=== PATIENT | male | born 1930 | race Caucasian/White ===

== ENCOUNTER 2016-12-02 10:50 | Emergency (ER) | payer MEDICARE ==
[~2016-12-02] VITALS: Ht 182.9 cm; Wt 97.0 kg
[~2016-12-02 10:50] MED LIST: ASPI81TA82 PO; CALTTAB5 PO; GABA300C3 PO; GLUCCAP13 PO; LOMO PO; SPIRCAP INH; TAB-TAB PO; TERA2CAP3 PO
[2016-12-02 10:51] VITALS: BP 190/74; PULSE 59; RESP 16; TEMP 98.4; O2SAT 94
--- NOTE | 2016-12-02 11:54 | PD ---
HPI . "my doctor sent me" Chief Complaint: Edema Time Seen by Provider: 11:10 Travel History International Travel<30 days: No Contact w/Intl Traveler<30days: No Traveled to known affect area: No History of Present Illness HPI 86-year-old male with a history of emphysema presents after physician sent him for left leg swelling. Swelling has been gradual for one week and got significantly worse on Wednesday. On Wednesday he noticed several bruises over the left lower extremity. Patient typically walks 2 miles a day and has still been able to ambulate. He denies any chest pain, shortness of breath, cough, leg pain or trauma to the area. He denies any history of blood clots or GI bleeds. PFSH Past Medical History Arthritis: Yes Cancer: Yes (COLON) Cardiovascular Problems: No COPD: Yes (EMPHYSEMA) Cerebrovascular Accident: Yes (20 yrs ago ) Diabetes: No Endocrine: No GERD: Yes Genitourinary: Yes (BPH) Hepatitis: No Hiatal Hernia: No Immune Disorder: No Musculoskeletal: Yes Neurologic: No Psychiatric: No Reproductive: No Respiratory: Yes (Emphysema ) Radiation Therapy: No Thyroid Disease: No Past Surgical History Abdominal Surgery: Yes (RIGHT ING. HERNIA REPAIR, COLON SX FOR CA) Pacemaker: No Social History Alcohol Use: Yes (3GLASSES OF WINE/NIGHT) Tobacco Use: No (QUIT 15 YEARS AGO) Substance Use: No Allergies-Medications (Allergen,Severity, Reaction): Coded Allergies: No Known Allergies (Verified , 04/06/12) Reported Meds & Prescriptions Reported Meds & Active Scripts Active Reported Aspir-81 (Aspirin) 81 Mg Tab 81 Mg PO DAILY Lomotil (Diphenoxylate HCl/Atropine) 1 Tab Tab 1 Tab PO TID FOR DIARRHEA Glucosamine/Chondroitin Cap 1 Cap PO BID Spiriva Handihaler (Tiotropium Blanchard) 18 Mcg Cap 1 Dose INH DAILY DO NOT SWALLOW CAPSULES Calcium (Calcium Carbonate) 600 Mg Tab 600 Mg PO DAILY Multivitamin (Multivitamins) 1 Tab Tab 1 Tab PO DAILY Terazosin Hcl (Terazosin HCl) 2 Mg Cap 2 Mg PO DAILY Gabapentin 300 Mg Cap 300 Mg PO TID Review of Systems Except as stated in HPI: all other systems reviewed are Neg General / Constitutional: No: Fever HENT: No: Headaches Cardiovascular: No: Chest Pain or Discomfort, Tachycardia Respiratory: No: Cough, Shortness of Breath, Hemoptysis Gastrointestinal: No: Nausea, Vomiting Musculoskeletal: Positive: Edema, Other (leg pain), No: Myalgias Skin: Positive Dryness, Positive Change in Pigmentation Neurologic: No: Weakness, Headache Physical Exam Narrative GENERAL: Awake and alert in no acute distress. SKIN: Warm and dry. Peeling skin bilaterally in the toes and feet. HEAD: Atraumatic. Normocephalic. EYES: Pupils equal and round. Extraocular eye movements intact. ENT: Mucous membranes pink and moist. NECK: Trachea midline. Neck supple. CARDIOVASCULAR: Regular rate and rhythm. RESPIRATORY: Clear to auscultation bilaterally. No accessory muscle use. GASTROINTESTINAL: Abdomen soft, non-tender, nondistended. MUSCULOSKELETAL: Obvious swelling of the left lower extremity. Left lower extremity is significantly larger in circumference than the right. 3-4 cm bruise over the left medial harris. Pitting edema bilaterally to the knee, more severe on the left. Not tender on palpation of left calf. No erythema. Alopecia of both lower extremities. NEUROLOGICAL: Awake and alert. No obvious cranial nerve deficits. Motor grossly within normal limits. Normal speech. PSYCHIATRIC: Appropriate mood and affect; insight and judgment normal. Data Data Last Documented VS Vital Signs Date Time Temp Pulse Resp B/P Pulse Ox O2 Delivery O2 Flow Rate FiO2 12/02/16 11:52 99 Room Air 12/02/16 10:51 98.4 59 16 190/74 Orders Act Partial Throm Time (Ptt) (12/02/16 11:36) Prothrombin Time / Inr (Pt) (12/02/16 11:36) Us Leg Venous Doppler (12/02/16 11:45) Labs Laboratory Tests Test 12/02/16 11:35 Prothrombin Time 10.7 SEC Prothromb Time International 1.0 RATIO Ratio Activated Partial 27.9 SEC Thromboplast Time MDM Medical Decision Making Medical Screen Exam Complete: Yes Emergency Medical Condition: Yes Differential Diagnosis Differentials include DVT, PE, cellulitis, thrombophlebitis. Narrative Course Patient presents with 1 week of left lower extremity swelling and was sent to ED by his primary care physician. Patient is denying any chest pain, shortness of breath, or leg pain. The left lower extremity is obviously larger than the right and has prominent swelling. He has no previous history of blood clots but his physical exam is suggestive of a DVT. Lower Extremity Ultrasound 12/02/16 1145 Signed Impressions: Service Date/Time: Friday, December 02, 2016 11:50 - CONCLUSION: Occlusive DVT involving the left peroneal vein and popliteal vein. Chencho Olivo MD Laboratory Tests Test 12/02/16 11:35 Prothrombin Time 10.7 SEC Prothromb Time International 1.0 RATIO Ratio Activated Partial 27.9 SEC Thromboplast Time Patient was found to have a DVT of the left lower extremity. Will be started on Xarelto and instructed to follow-up closely with his primary care physician. Return precautions for PE were given. Patient will be discharged to home. Diagnosis Primary Impression: Deep vein thrombosis (DVT) Qualified Code: I82.432 - Acute deep vein thrombosis (DVT) of popliteal vein of left lower extremity Patient Instructions: Deep Venous Thrombosis (DC), General Instructions, Pulmonary Embolism (DC) Med/Other Pt SpecificInfo: Prescription(s) given Scripts Rivaroxaban (Xarelto)15 Mg Tab15 Mg PO Q12HR 21 Days Ref 0 Prov:Lolly Jacobs MD 12/02/16 Disposition: 01 DISCHARGE HOME Condition: Stable Lolly Jacobs MD Dec 02, 2016 11:53
[2016-12-02 12:17] LABS: APTT (PATIENT) 27.9 SEC (24.3-30.1); PROTHROMBIN TIME - PATIENT 10.7 SEC (9.8-11.6)
--- NOTE | 2016-12-02 13:11 | RADRPT ---
EXAM DATE/TIME: 12/02/2016 11:50 [facility] COMPARISON: No previous studies available for comparison. INDICATIONS : Left leg swelling. MEDICAL HISTORY : Hypertension. Chronic obstructive pulmonary disease. CVA. GI bleed. Colon cancer. GERD. BPH. Arth ritis. SURGICAL HISTORY : Colon resection. Hernia repair. ENCOUNTER: Initial ACUITY: 1 day PAIN SCORE: 0/10 LOCATION: Left leg. TECHNIQUE: Venous ultrasound of the leg was performed from the inguinal ligament to the proximal calf. Real-ara e, color Doppler and spectral tracing, compression and augmentation techniques were used. FINDINGS: There is evidence of occlusive deep venous thrombosis involving the popliteal vein and left peroneal vein within the calf. The superficial common femoral vein in the thigh and upper to the pelvis are pa tent. CONCLUSION: Occlusive DVT involving the left peroneal vein and popliteal vein. Chencho Olivo MD on December 02, 2016 at 13:07 Board Certified Radiologist. This report was verified electronically.
[2016-12-02] MEDS ORDERED: XARE15TA PO (13:27)
[2016-12-02] MEDS ORDERED: IBUPROFEN 800 MG TAB PO ONE (13:30)
[2016-12-02 14:05] VITALS: BP 128/74
== END 2016-12-02 14:06 | disposition home or self-care (01) ==
LOC: NEPD 10:50
DX: I82.432 Acute embolism and thrombosis of left popliteal vein (principal); J43.9 Emphysema, unspecified; Z87.891 Personal history of nicotine dependence
CPT/HCPCS: 85610; 85730; 93971

== ENCOUNTER 2017-05-06 10:17 | Inpatient (IN) | payer MEDICARE ==
[~2017-05-06] VITALS: Ht 182.9 cm; Wt 94.3 kg
[2017-05-06] VITALS (8 sets, daily range): BP systolic 144–179; BP diastolic 63–82; PULSE 76–111; RESP 22–26; TEMP 98.8–100.2; O2SAT 73–95
[~2017-05-06 10:17] MED LIST changes: +XARE15TA PO
--- NOTE | 2017-05-06 10:44 | PD ---
HPI Chief Complaint: Respiratory Distress Time Seen by Provider: 10:39 Travel History International Travel<30 days: No Contact w/Intl Traveler<30days: No Traveled to known affect area: No History of Present Illness HPI 87-year-old male patient with history of COPD, CHF, presents to the ER today because he has had several days' history of worsening dyspnea on exertion, shortness of breath, coughing up foamy yellowish phlegm. He denies any chest pains, has been having some mild subjective fevers. He denies any other issues. He states that his renal doctor had stopped his Lasix several weeks ago. Modifying Factors: None Associated Signs & Symptoms: Shortness of breath, dyspnea on exertion Risk Factors: CHF history, COPD history, stopped Lasix PFSH Past Medical History Arthritis: Yes Cancer: Yes (COLON) Cardiovascular Problems: No COPD: Yes (EMPHYSEMA) Cerebrovascular Accident: Yes (20 yrs ago ) Diabetes: No Diminished Hearing: No Endocrine: No Gastrointestinal Disorders: Yes (CURRENT GI BLEED) GERD: Yes Genitourinary: Yes (BPH) Hepatitis: No Hiatal Hernia: No Hypertension: Yes Immune Disorder: No Medical other: Yes (BACK, ARTHRITIS) Musculoskeletal: Yes Neurologic: No Psychiatric: No Reproductive: No Respiratory: Yes Radiation Therapy: No Thyroid Disease: No Tetanus Vaccination: > 5 Years Influenza Vaccination: Yes Past Surgical History Abdominal Surgery: Yes (RIGHT ING. HERNIA REPAIR, COLON SX FOR CA) Pacemaker: No Social History Alcohol Use: Yes Tobacco Use: No Substance Use: No Allergies-Medications (Allergen,Severity, Reaction): Coded Allergies: No Known Allergies (Verified Adverse Reaction, Unknown, 05/06/17) Reported Meds & Prescriptions Reported Meds & Active Scripts Active Reported Lasix (Furosemide) 40 Mg Tab 40 Mg PO DAILY Glucosamine-Chondroitin 500-400 Mg Tab 1 Tab PO BID Spiriva Handihaler (Tiotropium Inh) 18 Mcg Cap 18 Mcg INH DAILY 1 capsule = 18 mcg Aspir-81 (Aspirin) 81 Mg Tabdr Calcium 600+D 200 (Calcium Carbonate-Vitamin D) 600-200 Mg-Unit Tab 1 Tab PO BID Terazosin (Terazosin HCl) 2 Mg Cap 2 Mg PO HS Gabapentin 300 Mg Cap 300 Mg PO TID Review of Systems Except as stated in HPI: all other systems reviewed are Neg Physical Exam Narrative GENERAL: Well-developed elderly white male patient currently in mild respiratory distress. Awake and oriented 3. SKIN: Focused skin assessment warm/dry. HEAD: Atraumatic. Normocephalic. EYES: Pupils equal and round. No scleral icterus. No injection or drainage. ENT: No nasal bleeding or discharge. Mucous membranes pink and moist. NECK: Trachea midline. No JVD. CARDIOVASCULAR: Regular rate and rhythm. No murmur appreciated. RESPIRATORY: No accessory muscle use. Bibasilar rails. Breath sounds equal bilaterally. GASTROINTESTINAL: Abdomen soft, non-tender, nondistended. Hepatic and splenic margins not palpable. MUSCULOSKELETAL: No obvious deformities. No clubbing. No cyanosis. Bilateral pitting edema the legs. NEUROLOGICAL: Awake and alert. No obvious cranial nerve deficits. Motor grossly within normal limits. Normal speech. PSYCHIATRIC: Appropriate mood and affect; insight and judgment normal. Data Data Last Documented VS Vital Signs Date Time Temp Pulse Resp B/P (MAP) Pulse Ox O2 Delivery O2 Flow Rate FiO2 05/06/17 12:13 90 26 144/63 (90) 94 Nasal Cannula 5.00 05/06/17 10:28 99.4 Orders Orders Complete Blood Count With Diff (05/06/17 10:39) Comprehensive Metabolic Panel (05/06/17 10:39) B-Type Natriuretic Peptide (05/06/17 10:39) Act Partial Throm Time (Ptt) (05/06/17 10:39) Prothrombin Time / Inr (Pt) (05/06/17 10:39) Magnesium (Mg) (05/06/17 10:39) Ckmb (Isoenzyme) Profile (05/06/17 10:39) Troponin I (05/06/17 10:39) Influenzae A/B Antigen (05/06/17 10:39) Blood Culture (05/06/17 10:39) Iv Access Insert/Monitor (05/06/17 10:39) Electrocardiogram (05/06/17 10:39) Ecg Monitoring (05/06/17 10:39) Oximetry (05/06/17 10:39) Oxygen Administration (05/06/17 10:39) Chest, Single Ap (05/06/17 10:39) Sodium Chloride 0.9% Flush (Ns Flush) (05/06/17 10:45) Nitroglycerin 2% Oint (Nitroglycerin 2% (05/06/17 10:45) CKMB (05/06/17 10:45) CKMB% (05/06/17 10:45) Ceftriaxone Inj (Rocephin Inj) (05/06/17 11:41) Azithromycin Inj (Zithromax Inj) (05/06/17 11:41) Admit To Inpatient (05/06/17 ) Code Status (05/06/17 12:06) Vital Signs (Adult) Q4H (05/06/17 12:06) Activity Oob With Assistance (05/06/17 12:06) Diet Heart Healthy (05/06/17 Lunch) Sodium Chloride 0.9% Flush (Ns Flush) (05/06/17 12:15) Sodium Chloride 0.9% Flush (Ns Flush) (05/06/17 21:00) Acetaminophen (Tylenol) (05/06/17 12:15) Ondansetron Inj (Zofran Inj) (05/06/17 12:15) Basic Metabolic Panel (Bmp) (05/07/17 06:00) Complete Blood Count With Diff (05/07/17 06:00) Chest, Pa & Lat (05/07/17 08:00) Electrocardiogram (05/06/17 12:06) Resp Oxygen Sang C Titrat 1-4 L (05/06/17 ) Pt Request For Service (05/06/17 12:06) Scd Bilateral/Knee High [place].BID (05/06/17 12:06) Naloxone Inj (Narcan Inj) (05/06/17 12:15) Magnesium Hydroxide Liq (Milk Of Magnesi (05/06/17 12:15) Inpatient Certification (05/06/17 ) Gabapentin (Neurontin) (05/06/17 13:00) Terazosin (Hytrin) (05/06/17 21:00) Tiotropium Inh (Spiriva Inh) (05/07/17 09:00) Albuterol-Ipratropium Neb (Duoneb Neb) (05/06/17 16:00) Albuterol-Ipratropium Neb (Duoneb Neb) (05/06/17 12:30) Rivaroxaban (Xarelto) (05/07/17 09:00) Labs Laboratory Tests Test 05/06/17 10:45 White Blood Count 12.4 TH/MM3 Red Blood Count 3.93 MIL/MM3 Hemoglobin 12.5 GM/DL Hematocrit 37.7 % Mean Corpuscular Volume 96.0 FL Mean Corpuscular Hemoglobin 31.9 PG Mean Corpuscular Hemoglobin Concent 33.2 % Red Cell Distribution Width 13.2 % Platelet Count 215 TH/MM3 Mean Platelet Volume 8.1 FL Neutrophils (%) (Auto) 84.2 % Lymphocytes (%) (Auto) 5.1 % Monocytes (%) (Auto) 10.6 % Eosinophils (%) (Auto) 0.0 % Basophils (%) (Auto) 0.1 % Neutrophils # (Auto) 10.5 TH/MM3 Lymphocytes # (Auto) 0.6 TH/MM3 Monocytes # (Auto) 1.3 TH/MM3 Eosinophils # (Auto) 0.0 TH/MM3 Basophils # (Auto) 0.0 TH/MM3 CBC Comment DIFF FINAL Differential Comment Prothrombin Time 10.0 SEC Prothromb Time International Ratio 1.0 RATIO Activated Partial Thromboplast Time 32.0 SEC Blood Urea Nitrogen 17 MG/DL Creatinine 1.18 MG/DL Random Glucose 117 MG/DL Total Protein 7.4 GM/DL Albumin 2.8 GM/DL Calcium Level 9.2 MG/DL Magnesium Level 1.5 MG/DL Alkaline Phosphatase 104 U/L Aspartate Amino Transf (AST/SGOT) 28 U/L Alanine Aminotransferase (ALT/SGPT) 25 U/L Total Bilirubin 0.8 MG/DL Sodium Level 132 MEQ/L Potassium Level 4.0 MEQ/L Chloride Level 96 MEQ/L Carbon Dioxide Level 26.0 MEQ/L Anion Gap 10 MEQ/L Estimat Glomerular Filtration Rate 59 ML/MIN Total Creatine Kinase 111 U/L Creatine Kinase MB 3.0 NG/ML Troponin I LESS THAN 0.02 NG/ML B-Type Natriuretic Peptide 137 PG/ML MDM Medical Decision Making Medical Screen Exam Complete: Yes Emergency Medical Condition: Yes Medical Record Reviewed: Yes Interpretation(s) Laboratory Tests Test 05/06/17 10:45 White Blood Count 12.4 TH/MM3 (4.0-11.0) Red Blood Count 3.93 MIL/MM3 (4.50-5.90) Hemoglobin 12.5 GM/DL (13.0-17.0) Hematocrit 37.7 % (39.0-51.0) Neutrophils (%) (Auto) 84.2 % (16.0-70.0) Lymphocytes (%) (Auto) 5.1 % (9.0-44.0) Monocytes (%) (Auto) 10.6 % (0.0-8.0) Neutrophils # (Auto) 10.5 TH/MM3 (1.8-7.7) Lymphocytes # (Auto) 0.6 TH/MM3 (1.0-4.8) Monocytes # (Auto) 1.3 TH/MM3 (0-0.9) Activated Partial Thromboplast Time 32.0 SEC (24.3-30.1) Random Glucose 117 MG/DL (74-106) Albumin 2.8 GM/DL (3.4-5.0) Sodium Level 132 MEQ/L (136-145) Chloride Level 96 MEQ/L (98-107) Estimat Glomerular Filtration Rate 59 ML/MIN (>89) Troponin I LESS THAN 0.02 NG/ML B-Type Natriuretic Peptide 137 PG/ML (0-100) Last 24 hours Impressions Chest X-Ray 05/06/17 1039 Signed Impressions: Service Date/Time: , May 06, 2017 10:47 - CONCLUSION: 1. Left lower lobe airspace consolidation and likely trace pleural effusion. Findings are concerning for left lower lobe pneumonia. 2. Cardiomegaly with minimal positive fluid balance. Jeremy Rolon MD Differential Diagnosis Shortness of breath, dyspnea on exertion: CHF exacerbation versus COPD exacerbation versus pneumonia Narrative Course Chest x-ray concerning for underlying left lower lobe pneumonia. IV antibiotics initiated after blood cultures were drawn. Patient was initially given nitroglycerin due to elevated blood pressure and leg swelling, concerning for CHF exacerbation. However, chest x-ray and BNP is not indicative of this. Nitroglycerin was removed at that time. Case was then discussed with Dr. Fajardo for admission for further treatment. Diagnosis Primary Impression: Pneumonia Additional Impressions: Hypoxia Sepsis Admitting Information Admitting Physician Requests: Kaushik Briones MD May 06, 2017 10:44
[2017-05-06] MEDS ORDERED: SODIUM CHLORIDE 0.9% FLUSH 10 ML FLUSH IVF PRN (10:45)
[2017-05-06] MEDS ORDERED: TERA2CAP3 PO (10:45)
[2017-05-06] MEDS ORDERED: ASPI81TA81 (10:45)
[2017-05-06] MEDS ORDERED: SPIRCAP INH (10:45)
[2017-05-06] MEDS ORDERED: GLUC500T4 PO (10:45)
[2017-05-06] MEDS ORDERED: FURO1TAB60 PO (10:45)
[2017-05-06] MEDS ORDERED: GABA300C5 PO (10:45)
[2017-05-06] MEDS ORDERED: NITROGLYCERIN 2% OINT 1 GM PACKET TOPICAL ONE (10:45)
[2017-05-06] MEDS ORDERED: CALCTAB19 PO (10:45)
--- NOTE | 2017-05-06 11:04 | RADRPT ---
EXAM DATE/TIME: 05/06/2017 10:47 [facility] COMPARISON: No previous studies available for comparison. INDICATIONS : Short of breath and cough. MEDICAL HISTORY : Hypertension. Chronic obstructive pulmonary disease. Carcinoma, colon. CVA. GI bleed.GERD. BPH. A rthritis. SURGICAL HISTORY : Colon resection. Hernia repair. ENCOUNTER: Initial ACUITY: 1 day PAIN SCORE: 0/10 LOCATION: Bilateral chest FINDINGS: Left lower lobe airspace disease and likely trace pleural effusion. Cardiac lead is mildly enlarged. Pulmonary vascularity is slightly indistinct. Bony thorax is intact. CONCLUSION: 1. Left lower lobe airspace consolidation and likely trace pleural effusion. Findings are concerning for left lower lobe pneumonia. 2. Cardiomegaly with minimal positive fluid balance. Jeremy Rolon MD on May 06, 2017 at 11:02 Board Certified Radiologist. This report was verified electronically.
[2017-05-06 11:09] LABS: AUTOMATED NEUTROPHIL # 10.5 TH/MM3 (1.8-7.7); BASOPHIL % 0.1 % (0.0-2.0); HEMATOCRIT 37.7 % (39.0-51.0); HEMO FLAGS DIFF FINAL; LYMPH % 5.1 % (9.0-44.0); LYMPHOCYTE # 0.6 TH/MM3 (1.0-4.8); MEAN CORPUSCULAR HEMOGLOBIN 31.9 PG (27.0-34.0); MEAN CORPUSCULAR HGB CONC 33.2 % (32.0-36.0); MONO % 10.6 % (0.0-8.0); NEUT % 84.2 % (16.0-70.0); PLATELET COUNT 215 TH/MM3 (150-450); RED BLOOD COUNT 3.93 MIL/MM3 (4.50-5.90); RED CELL DISTRIBUTION WIDTH 13.2 % (11.6-17.2); WHITE BLOOD COUNT 12.4 TH/MM3 (4.0-11.0)
[2017-05-06 11:23] LABS: ANION GAP 10 MEQ/L (5-15); AST (GOT) 28 U/L (15-37); BLOOD UREA NITROGEN 17 MG/DL (7-18); CHLORIDE 96 MEQ/L (98-107); GLOMERULAR FILTRATION RATE 59 ML/MIN (>89); MAGNESIUM 1.5 MG/DL (1.5-2.5); SODIUM (NA) 132 MEQ/L (136-145)
[2017-05-06 11:28] LABS: ALKALINE PHOSPHATASE 104 U/L (45-117); ALT (GPT) 25 U/L (12-78); CREATINE KINASE 111 U/L (39-308); TOTAL BILIRUBIN ADULT 0.8 MG/DL (0.2-1.0)
[2017-05-06] MEDS ORDERED: cefTRIAXone INJ 2,000 MG in SODIUM CHLORIDE 0.9% INJ 100 ML IV STA (11:41)
[2017-05-06] MEDS ORDERED: AZITHROMYCIN INJ 500 MG in SODIUM CHLOR 0.9% 250 ML INJ 250 ML IV STA (11:41)
[2017-05-06] MEDS ORDERED: ONDANSETRON HCL 4 MG/2 ML VIAL IVP PRN (12:15)
[2017-05-06] MEDS ORDERED: ACETAMINOPHEN 325 MG TAB PO PRN (12:15)
[2017-05-06] MEDS ORDERED: SODIUM CHLORIDE 0.9% FLUSH 10 ML FLUSH IV FLUSH PRN (12:15)
[2017-05-06] MEDS ORDERED: MAGNESIUM HYDROXIDE SUSP 30 ML CUP PO PRN (12:15)
[2017-05-06] MEDS ORDERED: NALOXONE HCL 0.4 MG/ML AMP IV PUSH PRN (12:15)
[2017-05-06] MEDS ORDERED: RESP: ALBUTEROL 2.5 MG/IPRATROPIUM 0.5 MG NEB (PRN) NEB (12:30)
[2017-05-06] MEDS: GABAPENTIN 300 MG CAP PO SCH ×3 (13:41→22:46)
--- NOTE | 2017-05-06 15:02 | HHI.HP ---
HPI Service [facility] Hospitalists Primary Care Physician Edgar Melgar MD Admission Diagnosis pneumonia/respiratory distress/hypoxia Travel History International Travel<30 Days: No Contact w/Intl Traveler <30 Da: No Traveled to Known Affected Are: No History of Present Illness This is an 87-year-old male patient with past medical history which includes arthritis, BPH, stage II colon cancer resected 2010, chronic obstructive pulmonary disease, GERD, hyperlipidemia, memory loss, neuralgia foot, osteoarthritis and osteoporosis. Patient reports he's had worsening shortness of breath and cough productive of yellow phlegm for the past 5 days. Patient also endorses subjective fevers although he has not taken his temperature. Patient denies chills, chest pains nausea vomiting diarrhea constipation. Review of Systems Constitutional: COMPLAINS OF: Diaphoretic episodes, Fatigue, Fever, DENIES: Chills Eyes: DENIES: Blurred vision, Diplopia, Vision loss Respiratory: COMPLAINS OF: Cough, Sputum production, Shortness of breath Cardiovascular: COMPLAINS OF: Dyspnea on Exertion, DENIES: Chest pain, Lower Extremity Edema Gastrointestinal: DENIES: Nausea, Vomiting Neurologic: DENIES: Abnormal gait, Headache, Localized weakness, Speech Problems Psychiatric: DENIES: Anxiety, Confusion, Depression Past Family Social History Past Medical History arthritis, BPH, stage II colon cancer resected 2010, chronic obstructive pulmonary disease, GERD, hyperlipidemia, memory loss, neuralgia foot, osteoarthritis and osteoporosis Past Surgical History Appendectomy, colon resection for stage II carcinoma of the colon, hernia repair , tonsillectomy and surgical revision of undescended testicle Reported Medications Lasix (Furosemide) 40 Mg Tab 40 Mg PO DAILY- no longer taking discontinued by nephrology Glucosamine-Chondroitin 500-400 Mg Tab 1 Tab PO BID Spiriva Handihaler (Tiotropium Inh) 18 Mcg Cap 18 Mcg INH DAILY 1 capsule = 18 mcg Aspir-81 (Aspirin) 81 Mg Tabdr Calcium 600+D 200 (Calcium Carbonate-Vitamin D) 600-200 Mg-Unit Tab 1 Tab PO BID Terazosin (Terazosin HCl) 2 Mg Cap 2 Mg PO HS Gabapentin 300 Mg Cap 300 Mg PO TID Allergies: Coded Allergies: No Known Allergies (Verified Allergy, Unknown, 05/06/17) Active Ordered Medications Current Medications Medications (Trade) Dose Ordered Sig/Kamari Route Start Time Stop Time Status Last Admin (NS Flush) 2 ml UNSCH PRN IV FLUSH 05/06/17 12:15 (NS Flush) 2 ml BID IV FLUSH 05/06/17 21:00 (Tylenol) 650 mg Q4H PRN PO 05/06/17 12:15 (Zofran Inj) 4 mg Q6H PRN IVP 05/06/17 12:15 (Narcan Inj) 0.4 mg UNSCH PRN IV PUSH 05/06/17 12:15 (Milk Of Magnyulia Liq) 30 ml Q12H PRN PO 05/06/17 12:15 (Neurontin) 300 mg TID PO 05/06/17 13:00 05/06/17 13:41 (Hytrin) 2 mg HS PO 05/06/17 21:00 (Spiriva Inh) 18 mcg DAILY INH 05/07/17 09:00 (Duoneb Neb) 1 ampule Q4HR WHILE AWAKE NEB NEB 05/06/17 16:00 (Duoneb Neb) 1 ampule Q2HR NEB PRN NEB 05/06/17 12:30 (Xarelto) 20 mg DAILY PO 05/07/17 09:00 Family History Reviewed and noncontributory Social History Rare EtOH use Denies tobacco use or illicit drug use Physical Exam Vital Signs Vital Signs Date Time Temp Pulse Resp B/P (MAP) Pulse Ox O2 Delivery O2 Flow Rate FiO2 05/06/17 14:15 100.2 94 22 149/66 (93) 92 05/06/17 13:53 05/06/17 12:13 90 26 144/63 (90) 94 Nasal Cannula 5.00 05/06/17 10:45 94 Nasal Cannula 5.00 05/06/17 10:36 90 26 94 Nasal Cannula 5.00 05/06/17 10:28 99.4 94 26 154/82 (106) 92 05/06/17 10:20 98.8 111 24 179/81 (113) 73 Room Air Physical Exam GENERAL: This is a well-nourished, well-developed patient, SOB with conversation SKIN: No rashes, ecchymoses or lesions. Cool and dry. HEAD: Atraumatic. Normocephalic. No temporal or scalp tenderness. EYES: Extraocular motions intact. No scleral icterus. No injection or drainage. ENT: Nose without bleeding, purulent drainage or septal hematoma. Throat without erythema, tonsillar hypertrophy or exudate. Uvula midline. Airway patent. NECK: Trachea midline. No JVD or lymphadenopathy. Supple, nontender, no meningeal signs. CARDIOVASCULAR: Regular rate and rhythm RESPIRATORY: rhonchi and wheezing through out with poor air movement GASTROINTESTINAL: Abdomen soft, non-tender, nondistended. No guarding. MUSCULOSKELETAL: Bilateral lower extremity 3 + pitting edema NEUROLOGICAL: Awake and alert. No focal deficits noted. Motor and sensory grossly within normal limits. Five out of 5 muscle strength in all muscle groups. Laboratory Laboratory Tests Test 05/06/17 10:45 White Blood Count 12.4 Red Blood Count 3.93 Hemoglobin 12.5 Hematocrit 37.7 Mean Corpuscular Volume 96.0 Mean Corpuscular Hemoglobin 31.9 Mean Corpuscular Hemoglobin Concent 33.2 Red Cell Distribution Width 13.2 Platelet Count 215 Mean Platelet Volume 8.1 Neutrophils (%) (Auto) 84.2 Lymphocytes (%) (Auto) 5.1 Monocytes (%) (Auto) 10.6 Eosinophils (%) (Auto) 0.0 Basophils (%) (Auto) 0.1 Neutrophils # (Auto) 10.5 Lymphocytes # (Auto) 0.6 Monocytes # (Auto) 1.3 Eosinophils # (Auto) 0.0 Basophils # (Auto) 0.0 CBC Comment DIFF FINAL Differential Comment Prothrombin Time 10.0 Prothromb Time International Ratio 1.0 Activated Partial Thromboplast Time 32.0 Blood Urea Nitrogen 17 Creatinine 1.18 Random Glucose 117 Total Protein 7.4 Albumin 2.8 Calcium Level 9.2 Magnesium Level 1.5 Alkaline Phosphatase 104 Aspartate Amino Transf (AST/SGOT) 28 Alanine Aminotransferase (ALT/SGPT) 25 Total Bilirubin 0.8 Sodium Level 132 Potassium Level 4.0 Chloride Level 96 Carbon Dioxide Level 26.0 Anion Gap 10 Estimat Glomerular Filtration Rate 59 Total Creatine Kinase 111 Creatine Kinase MB 3.0 Troponin I LESS THAN 0.02 B-Type Natriuretic Peptide 137 Date/Time Source Procedure Growth Status 05/06/17 11:20 Blood Peripheral Aerobic Blood Culture Pending Received 05/06/17 11:20 Blood Peripheral Anaerobic Blood Culture Pending Received 05/06/17 12:20 Nasal Washing Influenza Types A,B Antigen (MARY KAY) - Final NEGATIVE FOR FLU A AND B ANTIGEN.... Complete Result Diagram: 05/06/17 1045 05/06/17 1045 Imaging Last Impressions Chest X-Ray 05/06/17 1039 Signed Impressions: Service Date/Time: April 10:47 - CONCLUSION: 1. Left lower lobe airspace consolidation and likely trace pleural effusion. Findings are concerning for left lower lobe pneumonia. 2. Cardiomegaly with minimal positive fluid balance. MD Sharon Weavre VTE Risk Assessment Caprinwhitley VTE Risk Assessment: Mod/High Risk (score >= 2) Caprini Risk Assessment Model Point Value = 1 Point Value = 2 Point Value = 3 Point Value = 5 Age 41-60 Minor surgery BMI > 25 kg/m2 Swollen legs Varicose veins or History of unexplained or recurrent spontaneous Oral contraceptives or hormone replacement Sepsis (< 1 month) Serious lung disease, including pneumonia (< 1 month) Abnormal pulmonary function Acute myocardial infarction Congestive heart failure (< 1 month) History of inflammatory bowel disease Medical patient at bed rest Age 61-74 Arthroscopic surgery Major open surgery (> 45 min) Laparoscopic surgery (> 45 min) Malignancy Confined to bed (> 72 hours) Immobilizing plaster cast Central venous access Age >= 75 History of VTE Family history of VTE Factor V Leiden Prothrombin [id number] Lupus anticoagulant Anticardiolipin antibodies Elevated serum homocysteine Heparin-induced thrombocytopenia Other congenital or acquired thrombophilia Stroke (< 1 month) Elective arthroplasty Hip, pelvis, or leg fracture Acute spinal cord injury (< 1 month) Prophylaxis Regimen Total Risk Factor Score Risk Level Prophylaxis Regimen 0-1 Low Early ambulation 2 Moderate Order ONE of the following: *Sequential Compression Device (SCD) *Heparin 5000 units SQ BID 3-4 Higher Order ONE of the following medications: *Heparin 5000 units SQ TID *Enoxaparin/Lovenox 40 mg SQ daily (WT < 150 kg, CrCl > 30 mL/min) *Enoxaparin/Lovenox 30 mg SQ daily (WT < 150 kg, CrCl > 10-29 mL/min) *Enoxaparin/Lovenox 30 mg SQ BID (WT < 150 kg, CrCl > 30 mL/min) AND/OR *Sequential Compression Device (SCD) 5 or more Highest Order ONE of the following medications: *Heparin 5000 units SQ TID (Preferred with Epidurals) *Enoxaparin/Lovenox 40 mg SQ daily (WT < 150 kg, CrCl > 30 mL/min) *Enoxaparin/Lovenox 30 mg SQ daily (WT < 150 kg, CrCl > 10-29 mL/min) *Enoxaparin/Lovenox 30 mg SQ BID (WT < 150 kg, CrCl > 30 mL/min) AND *Sequential Compression Device (SCD) Assessment and Plan Problem List: (1) Pneumonia ICD Codes: J18.9 - Pneumonia, unspecified organism Status: Acute Plan: This is an 87-year-old male patient with past medical history which includes arthritis, BPH, stage II colon cancer resected 5 2010, chronic obstructive pulmonary disease, GERD, hyperlipidemia, memory loss, neuralgia foot , osteoarthritis and osteoporosis. Patient reports he's had worsening shortness of breath and cough productive of yellow phlegm for the past 5 days and subjective fevers. - CXR reviewed and reveals: Left lower lobe airspace consolidation and likely trace effusion. Findings are concerning for left lower lobe pna. Cardiomegaly with minimal positive fluid balance - Duonebs Q4h while awake and as needed - patient started on Rocephin and azithromycin in ER, will start Zosyn - repeat CXR PA and LAT in AM - Sputum culture, urine for legionella antigen and pneumococcal - titrate oxygen to maintain saturation > or equal to 92% (2) Hypoxia ICD Codes: R09.02 - Hypoxemia Status: Acute Plan: see above (3) COPD (chronic obstructive pulmonary disease) ICD Codes: J44.9 - Chronic obstructive pulmonary disease, unspecified Status: Acute Plan: Continue patient's home Spiriva duonebs scheduled and as needed patient with significant bilateral wheezing and decreased air entry, will add solumedrol 125 mg now then 60 mg Q6H (4) BPH (benign prostatic hyperplasia) ICD Codes: N40.0 - Benign prostatic hyperplasia without lower urinary tract symptoms Status: Chronic Plan: Continue patient's home Terazosin (5) Edema ICD Codes: R60.9 - Edema, unspecified Status: Chronic Plan: Patient with right sided Pleural effusion and BLE pitting edema Lasix 20 mg IV daily Assessment and Plan Patient examined. Assessment and plan formulated with Rebecca BAIRES I agree with the above. Physician Certification 2 Midnight Certification Type: Admission for Inpatient Services Order for Inpatient Services The services are ordered in accordance with Medicare regulations or non- Medicare payer requirements, as applicable. In the case of services not specified as inpatient-only, they are appropriately provided as inpatient services in accordance with the 2-midnight benchmark. Estimated LOS (days): 3 days is the estimated time the patient will need to remain in the hospital, assuming treatment plan goals are met and no additional complications. Post-Hospital Plan: Home Rebecca Andrew May 06, 2017 15:02 Gray Fajardo DO May 14, 2017 11:43
--- NOTE | 2017-05-06 17:01 | EKG ---
Date Performed: 05/06/2017 Time Performed: 12:34:24 PTAGE: 87 years EKG: Godfrey baseline artifact present.. Unclear underlying rhythm. Would repeat EKG. NONSPECIFIC T -WAVE ABNORMALITY ABNORMAL RHYTHM ECG PREVIOUS TRACING : 10/14/2010 09.55 DOCTOR: Oleg Willis Interpretating Date/Time 05/06/2017 17:00:29
[2017-05-06] MEDS ORDERED: methylPREDNISolone SOD SUCC 125 MG/2 ML VIAL IV PUSH ONE (18:15)
[2017-05-06] MEDS ORDERED: FUROSEMIDE 20 MG/2 ML VIAL IV PUSH ONE (18:15)
[2017-05-06] MEDS ORDERED: PIPERACIL-TAZO 3.375 GM PREMIX 50 ML IV SCH (18:30)
[2017-05-06] MEDS: TERAZOSIN HCL 1 MG CAP PO SCH (21:05)
[2017-05-06] MEDS: SODIUM CHLORIDE 0.9% FLUSH 10 ML FLUSH IV FLUSH SCH (21:05)
[2017-05-06] MEDS: guaiFENesin/CODEINE SYRUP 200 MG/20 MG/10 ML CUP PO PRN (21:05)
[2017-05-06] MEDS: PIPERACIL-TAZO 3.375 GM PREMIX 50 ML IV SCH (21:12)
[2017-05-06] MEDS: RESP: ALBUTEROL 2.5 MG/IPRATROPIUM 0.5 MG NEB (SCH) NEB (21:21)
[2017-05-07] VITALS (12 sets, daily range): BP systolic 122–157; BP diastolic 58–72; PULSE 69–94; RESP 18–24; TEMP 97.2–98.6; O2SAT 90–93
[2017-05-07] MEDS: guaiFENesin/CODEINE SYRUP 200 MG/20 MG/10 ML CUP PO PRN ×2 (04:33→22:20)
[2017-05-07] MEDS: PIPERACIL-TAZO 3.375 GM PREMIX 50 ML IV SCH ×4 (04:33→22:17)
[2017-05-07 07:17] LABS: AUTOMATED NEUTROPHIL # 10.7 TH/MM3 (1.8-7.7); BASOPHIL % 0.3 % (0.0-2.0); EOSINOPHIL % 0.1 % (0.0-4.0); HEMATOCRIT 34.9 % (39.0-51.0); LYMPH % 4.8 % (9.0-44.0); LYMPHOCYTE # 0.6 TH/MM3 (1.0-4.8); MEAN CELL VOLUME 95.2 FL (80.0-100.0); MEAN CORPUSCULAR HEMOGLOBIN 32.7 PG (27.0-34.0); MEAN CORPUSCULAR HGB CONC 34.4 % (32.0-36.0); MONO % 3.6 % (0.0-8.0); NEUT % 91.2 % (16.0-70.0); PLATELET COUNT 205 TH/MM3 (150-450); RED BLOOD COUNT 3.67 MIL/MM3 (4.50-5.90); RED CELL DISTRIBUTION WIDTH 13.1 % (11.6-17.2); WHITE BLOOD COUNT 11.7 TH/MM3 (4.0-11.0)
[2017-05-07 07:21] LABS: HEMO FLAGS AUTO DIFF
[2017-05-07 07:37] LABS: BICARBONATE 29.6 MEQ/L (21.0-32.0); POTASSIUM 4.2 MEQ/L (3.5-5.1)
[2017-05-07 08:31] LABS: MYELOCYTES 1 % (0-0); NEUTROPHIL # MANUAL DIFF 10.4 TH/MM3 (1.8-7.7); POLYS (SEG NEUTROPHILS) 88 % (16-70); WBC DIFF SAMPLE 100
[2017-05-07 08:33] LABS: PLATELET ESTIMATE SMEAR NORMAL (NORMAL); PLATELET MORPHOLOGY NORMAL (NORMAL); SCAN/DIFF FINAL DIFF MANUAL
[2017-05-07] MEDS ORDERED: RIVAROXABAN 20 MG TAB PO SCH (09:00)
--- NOTE | 2017-05-07 09:08 | RADRPT ---
EXAM DATE/TIME: 05/07/2017 08:47 [facility] COMPARISON: CHEST SINGLE AP, May 06, 2017, 10:47. INDICATIONS : Pneumonia. Patient complains of shortness of breath and cough. MEDICAL HISTORY : Chronic obstructive pulmonary disease. Hypertension Carcinoma, colon. CVA. SURGICAL HISTORY : Colon resection. Hernia repair. ENCOUNTER: Subsequent ACUITY: 1 week PAIN SCORE: 0/10 LOCATION: Bilateral chest FINDINGS: AP and lateral views of the chest demonstrate a cardiac silhouette size at the upper limits for merlin l. Lungs are underinflated. There is a small left basilar pleural-parenchymal opacity. Mild linear op acity is present at the right base. There is airspace consolidation on the lateral projection one of the lower lobes. No pneumothorax is identified. Bones demonstrate no acute finding. CONCLUSION: 1. Small left pleural effusion with adjacent atelectasis. There is likely atelectasis at the right rohith ng base as well. 2. Airspace consolidation in one of the lower lobes, likely the left lower lobe. This could represent an infectious process given the clinical history. Adrian Torres MD on May 07, 2017 at 9:05 Board Certified Radiologist. This report was verified electronically.
[2017-05-07] MEDS: RESP: ALBUTEROL 2.5 MG/IPRATROPIUM 0.5 MG NEB (SCH) NEB ×4 (09:12→19:29)
[2017-05-07] MEDS: GABAPENTIN 300 MG CAP PO SCH ×3 (09:25→18:07)
[2017-05-07] MEDS: FUROSEMIDE 20 MG/2 ML VIAL IV PUSH SCH (09:25)
[2017-05-07] MEDS: methylPREDNISolone SOD SUCC 125 MG/2 ML VIAL IV PUSH SCH ×3 (09:25→22:18)
[2017-05-07] MEDS: SODIUM CHLORIDE 0.9% FLUSH 10 ML FLUSH IV FLUSH SCH ×2 (09:29→22:18)
[2017-05-07] MEDS ORDERED: AZITHROMYCIN INJ 500 MG in SODIUM CHLOR 0.9% 250 ML INJ 250 ML IV SCH (10:00)
[2017-05-07] MEDS: TIOTROPIUM BROMIDE 18 MCG INH INH SCH (10:49)
[2017-05-07] MEDS ORDERED: cefTRIAXone INJ 1,000 MG in SODIUM CHLORIDE 0.9% INJ 100 ML IV SCH (11:00)
--- NOTE | 2017-05-07 17:03 | HHI.PR ---
Subjective Remarks Patient slightly improved today patient down to 4L via NC Objective Vitals Vital Signs Date Time Temp Pulse Resp B/P (MAP) Pulse Ox O2 Delivery O2 Flow Rate FiO2 05/07/17 16:17 97.6 73 18 129/60 (83) 90 05/07/17 15:50 90 Nasal Cannula 4.00 05/07/17 12:00 97.2 94 18 130/59 (82) 90 05/07/17 09:14 92 Nasal Cannula 4.00 05/07/17 08:00 98.6 75 18 134/68 (90) 90 05/07/17 04:24 69 05/07/17 04:00 98.6 77 22 157/72 (100) 91 05/07/17 04:00 Nasal Cannula 4.00 05/07/17 00:11 Nasal Cannula 4.00 05/07/17 00:11 98.3 80 24 141/65 (90) 93 05/07/17 00:00 82 05/06/17 21:24 92 Nasal Cannula 4.00 05/06/17 20:05 82 05/06/17 20:00 99.6 84 22 147/67 (93) 95 05/06/17 20:00 Nasal Cannula 4.00 05/07/17 05/07/17 05/08/17 15:00 23:00 07:00 Intake Total 240 ml Output Total 500 ml Balance -260 ml Intake Oral 240 ml Output Urine Total 500 ml # Voids 2 # Bowel Movements 0 Result Diagram: 05/07/17 0705/07/17 07 Other Results Laboratory Tests Test 05/06/17 10:45 05/07/17 07:05 White Blood Count 12.4 TH/MM3 11.7 TH/MM3 Red Blood Count 3.93 MIL/MM3 3.67 MIL/MM3 Hemoglobin 12.5 GM/DL 12.0 GM/DL Hematocrit 37.7 % 34.9 % Mean Corpuscular Volume 96.0 FL 95.2 FL Mean Corpuscular Hemoglobin 31.9 PG 32.7 PG Mean Corpuscular Hemoglobin Concent 33.2 % 34.4 % Red Cell Distribution Width 13.2 % 13.1 % Platelet Count 215 TH/MM3 205 TH/MM3 Mean Platelet Volume 8.1 FL 7.6 FL Neutrophils (%) (Auto) 84.2 % 91.2 % Lymphocytes (%) (Auto) 5.1 % 4.8 % Monocytes (%) (Auto) 10.6 % 3.6 % Eosinophils (%) (Auto) 0.0 % 0.1 % Basophils (%) (Auto) 0.1 % 0.3 % Neutrophils # (Auto) 10.5 TH/MM3 10.7 TH/MM3 Lymphocytes # (Auto) 0.6 TH/MM3 0.6 TH/MM3 Monocytes # (Auto) 1.3 TH/MM3 0.4 TH/MM3 Eosinophils # (Auto) 0.0 TH/MM3 0.0 TH/MM3 Basophils # (Auto) 0.0 TH/MM3 0.0 TH/MM3 CBC Comment DIFF FINAL AUTO DIFF Differential Comment FINAL DIFF MANUAL Prothrombin Time 10.0 SEC Prothromb Time International Ratio 1.0 RATIO Activated Partial Thromboplast Time 32.0 SEC Blood Urea Nitrogen 17 MG/DL 19 MG/DL Creatinine 1.18 MG/DL 1.12 MG/DL Random Glucose 117 MG/DL 173 MG/DL Total Protein 7.4 GM/DL Albumin 2.8 GM/DL Calcium Level 9.2 MG/DL 9.2 MG/DL Magnesium Level 1.5 MG/DL Alkaline Phosphatase 104 U/L Aspartate Amino Transf (AST/SGOT) 28 U/L Alanine Aminotransferase (ALT/SGPT) 25 U/L Total Bilirubin 0.8 MG/DL Sodium Level 132 MEQ/L 132 MEQ/L Potassium Level 4.0 MEQ/L 4.2 MEQ/L Chloride Level 96 MEQ/L 95 MEQ/L Carbon Dioxide Level 26.0 MEQ/L 29.6 MEQ/L Anion Gap 10 MEQ/L 7 MEQ/L Estimat Glomerular Filtration Rate 59 ML/MIN 62 ML/MIN Total Creatine Kinase 111 U/L Creatine Kinase MB 3.0 NG/ML Troponin I LESS THAN 0.02 NG/ML B-Type Natriuretic Peptide 137 PG/ML Differential Total Cells Counted 100 Neutrophils % (Manual) 88 % Lymphocytes % 7 % Monocytes % 4 % Neutrophils # (Manual) 10.4 TH/MM3 Myelocytes 1 % Platelet Estimate NORMAL Platelet Morphology Comment NORMAL Red Cell Morphology Comment NORMAL Imaging Last Impressions Chest X-Ray 05/06/17 1039 Signed Impressions: Service Date/Time: April 10:47 - CONCLUSION: 1. Left lower lobe airspace consolidation and likely trace pleural effusion. Findings are concerning for left lower lobe pneumonia. 2. Cardiomegaly with minimal positive fluid balance. Jeremy Rolon MD Objective Remarks GENERAL: This is a well-nourished, well-developed patient, appears more comfortable today CARDIOVASCULAR: Regular rate and rhythm RESPIRATORY: rhonchi and wheezing through out with poor air movement GASTROINTESTINAL: Abdomen soft, non-tender, nondistended. No guarding. MUSCULOSKELETAL: Bilateral lower extremity 3 + pitting edema NEUROLOGICAL: Awake and alert. No focal deficits noted. Motor and sensory grossly within normal limits. Five out of 5 muscle strength in all muscle groups. A/P Problem List: (1) Pneumonia ICD Codes: J18.9 - Pneumonia, unspecified organism Status: Acute Plan: This is an 87-year-old male patient with past medical history which includes arthritis, BPH, stage II colon cancer resected 5 2010, chronic obstructive pulmonary disease, GERD, hyperlipidemia, memory loss, neuralgia foot , osteoarthritis and osteoporosis. Patient reports he's had worsening shortness of breath and cough productive of yellow phlegm for the past 5 days and subjective fevers. - CXR reviewed and reveals: Left lower lobe airspace consolidation and likely trace effusion. Findings are concerning for left lower lobe pna. Cardiomegaly with minimal positive fluid balance - Duonebs Q4h while awake and as needed - patient started on Rocephin and azithromycin in ER, will start Zosyn - repeat CXR PA and LAT (05/07) Small left pleural effusion with adjacent atelectasis. There is likely atelectasis at the right lung base as well. Airspace consolidation in one of the lower lobes likely left lower lobe. This could represent an infectious process. Clinical history - Sputum culture pending - urine for legionella antigen presumptive negative and pneumococcal presumptive negative - titrate oxygen to maintain saturation > or equal to 92% (2) Hypoxia ICD Codes: R09.02 - Hypoxemia Status: Acute Plan: see above (3) COPD (chronic obstructive pulmonary disease) ICD Codes: J44.9 - Chronic obstructive pulmonary disease, unspecified Status: Acute Plan: Continue patient's home Spiriva duonebs scheduled and as needed patient with significant bilateral wheezing and decreased air entry, will add solumedrol 125 mg now solumedrol 60 mg Q6H (4) BPH (benign prostatic hyperplasia) ICD Codes: N40.0 - Benign prostatic hyperplasia without lower urinary tract symptoms Status: Chronic Plan: Continue patient's home Terazosin (5) Edema ICD Codes: R60.9 - Edema, unspecified Status: Chronic Plan: Patient with right sided Pleural effusion and BLE pitting edema Lasix 20 mg IV daily Assessment and Plan Patient examined. Assessment and plan formulated with Rebecca Andrew PA-C. I agree with the above. Rebecca Andrew May 07, 2017 17:03 Gray Fajardo DO May 14, 2017 11:35
--- NOTE | 2017-05-07 17:07 | HHI.PR ---
Subjective Remarks Pt is more comfortable today. Pt is less SOB. Objective Vitals Vital Signs Date Time Temp Pulse Resp B/P (MAP) Pulse Ox O2 Delivery O2 Flow Rate FiO2 05/07/17 16:17 97.6 73 18 129/60 (83) 90 05/07/17 15:50 90 Nasal Cannula 4.00 05/07/17 12:00 97.2 94 18 130/59 (82) 90 05/07/17 09:14 92 Nasal Cannula 4.00 05/07/17 08:00 98.6 75 18 134/68 (90) 90 05/07/17 04:24 69 05/07/17 04:00 98.6 77 22 157/72 (100) 91 05/07/17 04:00 Nasal Cannula 4.00 05/07/17 00:11 Nasal Cannula 4.00 05/07/17 00:11 98.3 80 24 141/65 (90) 93 05/07/17 00:00 82 05/06/17 21:24 92 Nasal Cannula 4.00 05/06/17 20:05 82 05/06/17 20:00 99.6 84 22 147/67 (93) 95 05/06/17 20:00 Nasal Cannula 4.00 05/07/17 05/07/17 05/08/17 15:00 23:00 07:00 Intake Total 240 ml Output Total 500 ml Balance -260 ml Intake Oral 240 ml Output Urine Total 500 ml # Voids 2 # Bowel Movements 0 Result Diagram: 05/07/17 0705 05/07/17 0705 Imaging Last Impressions Chest X-Ray 05/06/17 1039 Signed Impressions: Service Date/Time: April 10:47 - CONCLUSION: 1. Left lower lobe airspace consolidation and likely trace pleural effusion. Findings are concerning for left lower lobe pneumonia. 2. Cardiomegaly with minimal positive fluid balance. Jeremy Rolon MD Objective Remarks GENERAL: This is a well-nourished, well-developed patient, appears more comfortable today CARDIOVASCULAR: Regular rate and rhythm RESPIRATORY: rhonchi and wheezing through out with poor air movement GASTROINTESTINAL: Abdomen soft, non-tender, nondistended. No guarding. MUSCULOSKELETAL: Bilateral lower extremity 3 + pitting edema NEUROLOGICAL: Awake and alert. No focal deficits noted. Motor and sensory grossly within normal limits. Five out of 5 muscle strength in all muscle groups. A/P Problem List: (1) Pneumonia ICD Codes: J18.9 - Pneumonia, unspecified organism Status: Acute Plan: This is an 87-year-old male patient with past medical history which includes arthritis, BPH, stage II colon cancer resected 5 2010, chronic obstructive pulmonary disease, GERD, hyperlipidemia, memory loss, neuralgia foot , osteoarthritis and osteoporosis. Patient reports he's had worsening shortness of breath and cough productive of yellow phlegm for the past 5 days and subjective fevers. - CXR reviewed and reveals: Left lower lobe airspace consolidation and likely trace effusion. Findings are concerning for left lower lobe pna. Cardiomegaly with minimal positive fluid balance - Duonebs Q4h while awake and as needed - patient started on Rocephin and azithromycin in ER, will start Zosyn - repeat CXR PA and LAT (05/07) Small left pleural effusion with adjacent atelectasis. There is likely atelectasis at the right lung base as well. Airspace consolidation in one of the lower lobes likely left lower lobe. This could represent an infectious process. Clinical history - Sputum culture pending - urine for legionella antigen presumptive negative and pneumococcal presumptive negative - titrate oxygen to maintain saturation > or equal to 92% (2) Hypoxia ICD Codes: R09.02 - Hypoxemia Status: Acute Plan: see above (3) COPD (chronic obstructive pulmonary disease) ICD Codes: J44.9 - Chronic obstructive pulmonary disease, unspecified Plan: Continue patient's home Spiriva duonebs scheduled and as needed patient with significant bilateral wheezing and decreased air entry, will add solumedrol 125 mg now solumedrol 60 mg Q6H (4) BPH (benign prostatic hyperplasia) ICD Codes: N40.0 - Benign prostatic hyperplasia without lower urinary tract symptoms Plan: Continue patient's home Terazosin (5) Edema ICD Codes: R60.9 - Edema, unspecified Plan: Patient with right sided Pleural effusion and BLE pitting edema Lasix 20 mg IV daily Gray Fajardo DO May 07, 2017 17:07
[2017-05-07] MEDS: ENOXAPARIN SODIUM 40 MG/0.4 ML SYRINGE SQ SCH (18:10)
[2017-05-07] MEDS: PANTOPRAZOLE SOD 40 MG DELAYED RELEASE TAB PO SCH (18:10)
[2017-05-07] MEDS: TERAZOSIN HCL 1 MG CAP PO SCH (22:18)
[2017-05-08] VITALS (11 sets, daily range): BP systolic 116–132; BP diastolic 57–62; PULSE 59–98; RESP 16–20; TEMP 97.2–98.1; O2SAT 90–93
[2017-05-08] MEDS: PIPERACIL-TAZO 3.375 GM PREMIX 50 ML IV SCH ×4 (03:02→22:10)
[2017-05-08] MEDS: methylPREDNISolone SOD SUCC 125 MG/2 ML VIAL IV PUSH SCH ×4 (03:02→22:10)
[2017-05-08 07:08] LABS: BICARBONATE 28.2 MEQ/L (21.0-32.0); POTASSIUM 4.1 MEQ/L (3.5-5.1)
[2017-05-08] MEDS: RESP: ALBUTEROL 2.5 MG/IPRATROPIUM 0.5 MG NEB (SCH) NEB ×4 (08:19→20:14)
[2017-05-08] MEDS: GABAPENTIN 300 MG CAP PO SCH ×3 (08:41→17:47)
[2017-05-08] MEDS: FUROSEMIDE 20 MG/2 ML VIAL IV PUSH SCH (08:41)
[2017-05-08] MEDS: PANTOPRAZOLE SOD 40 MG DELAYED RELEASE TAB PO SCH (08:41)
[2017-05-08] MEDS: SODIUM CHLORIDE 0.9% FLUSH 10 ML FLUSH IV FLUSH SCH ×2 (08:42→22:10)
[2017-05-08] MEDS: TIOTROPIUM BROMIDE 18 MCG INH INH SCH (08:42)
--- NOTE | 2017-05-08 15:06 | HHI.PR ---
Subjective Remarks Patient awake and alert reports breathing is feeling better still requiring 4L via NC Objective Vitals Vital Signs Date Time Temp Pulse Resp B/P (MAP) Pulse Ox O2 Delivery O2 Flow Rate FiO2 05/08/17 13:24 Nasal Cannula 4.00 05/08/17 12:00 98.1 77 20 131/61 (84) 90 05/08/17 08:52 Nasal Cannula 4.00 05/08/17 08:21 93 Nasal Cannula 4.00 05/08/17 08:00 62 05/08/17 08:00 98.0 98 20 124/57 (79) 90 05/08/17 04:00 97.3 67 16 118/59 (78) 92 05/08/17 04:00 59 05/08/17 00:16 61 05/08/17 00:00 97.2 69 16 116/62 (80) 92 05/07/17 20:00 Nasal Cannula 4.00 05/07/17 20:00 98.1 80 18 122/58 (79) 92 05/07/17 19:08 85 05/07/17 16:17 97.6 73 18 129/60 (83) 90 05/07/17 15:50 90 Nasal Cannula 4.00 Result Diagram: 05/07/17 0705 05/08/17 0612 Other Results Laboratory Tests Test 05/06/17 10:45 05/07/17 07:05 05/08/17 06:12 White Blood Count 12.4 TH/MM3 11.7 TH/MM3 Red Blood Count 3.93 MIL/MM3 3.67 MIL/MM3 Hemoglobin 12.5 GM/DL 12.0 GM/DL Hematocrit 37.7 % 34.9 % Mean Corpuscular Volume 96.0 FL 95.2 FL Mean Corpuscular Hemoglobin 31.9 PG 32.7 PG Mean Corpuscular Hemoglobin Concent 33.2 % 34.4 % Red Cell Distribution Width 13.2 % 13.1 % Platelet Count 215 TH/MM3 205 TH/MM3 Mean Platelet Volume 8.1 FL 7.6 FL Neutrophils (%) (Auto) 84.2 % 91.2 % Lymphocytes (%) (Auto) 5.1 % 4.8 % Monocytes (%) (Auto) 10.6 % 3.6 % Eosinophils (%) (Auto) 0.0 % 0.1 % Basophils (%) (Auto) 0.1 % 0.3 % Neutrophils # (Auto) 10.5 TH/MM3 10.7 TH/MM3 Lymphocytes # (Auto) 0.6 TH/MM3 0.6 TH/MM3 Monocytes # (Auto) 1.3 TH/MM3 0.4 TH/MM3 Eosinophils # (Auto) 0.0 TH/MM3 0.0 TH/MM3 Basophils # (Auto) 0.0 TH/MM3 0.0 TH/MM3 CBC Comment DIFF FINAL AUTO DIFF Differential Comment FINAL DIFF MANUAL Prothrombin Time 10.0 SEC Prothromb Time International Ratio 1.0 RATIO Activated Partial Thromboplast Time 32.0 SEC Blood Urea Nitrogen 17 MG/DL 19 MG/DL 31 MG/DL Creatinine 1.18 MG/DL 1.12 MG/DL 1.32 MG/DL Random Glucose 117 MG/DL 173 MG/DL 157 MG/DL Total Protein 7.4 GM/DL Albumin 2.8 GM/DL Calcium Level 9.2 MG/DL 9.2 MG/DL 8.7 MG/DL Magnesium Level 1.5 MG/DL Alkaline Phosphatase 104 U/L Aspartate Amino Transf (AST/SGOT) 28 U/L Alanine Aminotransferase (ALT/SGPT) 25 U/L Total Bilirubin 0.8 MG/DL Sodium Level 132 MEQ/L 132 MEQ/L 130 MEQ/L Potassium Level 4.0 MEQ/L 4.2 MEQ/L 4.1 MEQ/L Chloride Level 96 MEQ/L 95 MEQ/L 94 MEQ/L Carbon Dioxide Level 26.0 MEQ/L 29.6 MEQ/L 28.2 MEQ/L Anion Gap 10 MEQ/L 7 MEQ/L 8 MEQ/L Estimat Glomerular Filtration Rate 59 ML/MIN 62 ML/MIN 52 ML/MIN Total Creatine Kinase 111 U/L Creatine Kinase MB 3.0 NG/ML Troponin I LESS THAN 0.02 NG/ML B-Type Natriuretic Peptide 137 PG/ML Differential Total Cells Counted 100 Neutrophils % (Manual) 88 % Lymphocytes % 7 % Monocytes % 4 % Neutrophils # (Manual) 10.4 TH/MM3 Myelocytes 1 % Platelet Estimate NORMAL Platelet Morphology Comment NORMAL Red Cell Morphology Comment NORMAL Imaging Last Impressions Chest X-Ray 05/06/17 1039 Signed Impressions: Service Date/Time: April 10:47 - CONCLUSION: 1. Left lower lobe airspace consolidation and likely trace pleural effusion. Findings are concerning for left lower lobe pneumonia. 2. Cardiomegaly with minimal positive fluid balance. Jeremy Rolon MD Objective Remarks GENERAL: This is a well-nourished, well-developed patient, in no acute distress CARDIOVASCULAR: Regular rate and rhythm RESPIRATORY: LLL coarse crackles present GASTROINTESTINAL: Abdomen soft, non-tender, nondistended. No guarding. MUSCULOSKELETAL: Bilateral lower extremity 3 + pitting edema NEUROLOGICAL: Awake and alert. No focal deficits noted. Motor and sensory grossly within normal limits. Five out of 5 muscle strength in all muscle groups. A/P Problem List: (1) Pneumonia ICD Codes: J18.9 - Pneumonia, unspecified organism Status: Acute Plan: This is an 87-year-old male patient with past medical history which includes arthritis, BPH, stage II colon cancer resected 5 2010, chronic obstructive pulmonary disease, GERD, hyperlipidemia, memory loss, neuralgia foot , osteoarthritis and osteoporosis. Patient reports he's had worsening shortness of breath and cough productive of yellow phlegm for the past 5 days and subjective fevers. - CXR reviewed and reveals: Left lower lobe airspace consolidation and likely trace effusion. Findings are concerning for left lower lobe pna. Cardiomegaly with minimal positive fluid balance - Duonebs Q4h while awake and as needed - patient started on Rocephin and azithromycin in ER, will start Zosyn - repeat CXR PA and LAT (05/07) Small left pleural effusion with adjacent atelectasis. There is likely atelectasis at the right lung base as well. Airspace consolidation in one of the lower lobes likely left lower lobe. This could represent an infectious process. Clinical history - Sputum culture pending - urine for legionella antigen presumptive negative and pneumococcal presumptive negative - titrate oxygen to maintain saturation > or equal to 92% - case discussed with patient and nurse as bedside as well as patient's daughter over the phone DVT prophylaxis with Lovenox (2) Hypoxia ICD Codes: R09.02 - Hypoxemia Status: Acute Plan: see above (3) COPD (chronic obstructive pulmonary disease) ICD Codes: J44.9 - Chronic obstructive pulmonary disease, unspecified Status: Acute Plan: Continue patient's home Spiriva duonebs scheduled and as needed patient with significant bilateral wheezing and decreased air entry, will add solumedrol 125 mg now solumedrol 60 mg Q6H -> (05/09) decrease to 60 mg Q12H (4) BPH (benign prostatic hyperplasia) ICD Codes: N40.0 - Benign prostatic hyperplasia without lower urinary tract symptoms Status: Chronic Plan: Continue patient's home Terazosin (5) Edema ICD Codes: R60.9 - Edema, unspecified Status: Chronic Plan: Patient with right sided Pleural effusion and BLE pitting edema Lasix 20 mg IV daily- DC'd 05/08 recheck BMP in AM Assessment and Plan Patient examined. Assessment and plan formulated with Rebecca Andrew PA-C. I agree with the above. Rebecca Andrew May 08, 2017 15:06 Gray Fajardo DO May 14, 2017 11:35
[2017-05-08] MEDS: ENOXAPARIN SODIUM 40 MG/0.4 ML SYRINGE SQ SCH (17:46)
[2017-05-08] MEDS: guaiFENesin E.R. 600 MG TAB PO SCH (22:11)
[2017-05-08] MEDS: TERAZOSIN HCL 1 MG CAP PO SCH (22:11)
[2017-05-08] MEDS: guaiFENesin/CODEINE SYRUP 200 MG/20 MG/10 ML CUP PO PRN (23:22)
[2017-05-09] VITALS (9 sets, daily range): BP systolic 132–146; BP diastolic 61–69; PULSE 63–97; RESP 18–20; TEMP 97.1–98.4; O2SAT 90–92
[2017-05-09] MEDS: PIPERACIL-TAZO 3.375 GM PREMIX 50 ML IV SCH ×4 (02:42→21:01)
[2017-05-09] MEDS: methylPREDNISolone SOD SUCC 125 MG/2 ML VIAL IV PUSH SCH ×3 (02:42→21:02)
[2017-05-09] MEDS: RESP: ALBUTEROL 2.5 MG/IPRATROPIUM 0.5 MG NEB (SCH) NEB ×3 (07:56→19:24)
[2017-05-09] MEDS: PANTOPRAZOLE SOD 40 MG DELAYED RELEASE TAB PO SCH (09:16)
[2017-05-09] MEDS: guaiFENesin E.R. 600 MG TAB PO SCH (09:16)
[2017-05-09] MEDS: SODIUM CHLORIDE 0.9% FLUSH 10 ML FLUSH IV FLUSH SCH ×2 (09:17→21:01)
[2017-05-09] MEDS: GABAPENTIN 300 MG CAP PO SCH ×3 (09:24→18:32)
[2017-05-09] MEDS: SPIRIVA RESPIMAT INH SCH (09:25)
[2017-05-09] MEDS: [UNRECOGNIZED DRUG - OTHER] INH SCH (09:25)
[2017-05-09 10:11] LABS: BICARBONATE 29.6 MEQ/L (21.0-32.0); POTASSIUM 3.9 MEQ/L (3.5-5.1)
--- NOTE | 2017-05-09 14:44 | HHI.PR ---
Subjective Remarks Patient reports having a, "bad night," last night. Patient c/o coughing and SOB through the night feeling better at this time, now on 3L Objective Vitals Vital Signs Date Time Temp Pulse Resp B/P (MAP) Pulse Ox O2 Delivery O2 Flow Rate FiO2 05/09/17 13:45 3.00 05/09/17 10:30 73 05/09/17 10:30 Nasal Cannula 3.00 05/09/17 08:00 92 Nasal Cannula 5.00 05/09/17 08:00 97.1 77 20 139/65 (89) 90 05/09/17 04:38 78 05/09/17 04:00 98.4 88 18 135/69 (91) 90 05/09/17 00:00 84 05/09/17 00:00 97.9 80 20 133/61 (85) 92 05/08/17 20:17 92 Nasal Cannula 4.00 05/08/17 20:00 78 05/08/17 20:00 97.9 77 18 132/61 (84) 91 05/08/17 20:00 Nasal Cannula 4.00 Humidified 05/08/17 17:14 84 05/08/17 16:00 97.4 81 20 130/61 (84) 90 Result Diagram: 05/07/17 0705 05/09/17 0847 Other Results Laboratory Tests Test 05/07/17 07:05 05/08/17 06:12 05/09/17 08:47 White Blood Count 11.7 TH/MM3 Red Blood Count 3.67 MIL/MM3 Hemoglobin 12.0 GM/DL Hematocrit 34.9 % Mean Corpuscular Volume 95.2 FL Mean Corpuscular Hemoglobin 32.7 PG Mean Corpuscular Hemoglobin Concent 34.4 % Red Cell Distribution Width 13.1 % Platelet Count 205 TH/MM3 Mean Platelet Volume 7.6 FL Neutrophils (%) (Auto) 91.2 % Lymphocytes (%) (Auto) 4.8 % Monocytes (%) (Auto) 3.6 % Eosinophils (%) (Auto) 0.1 % Basophils (%) (Auto) 0.3 % Neutrophils # (Auto) 10.7 TH/MM3 Lymphocytes # (Auto) 0.6 TH/MM3 Monocytes # (Auto) 0.4 TH/MM3 Eosinophils # (Auto) 0.0 TH/MM3 Basophils # (Auto) 0.0 TH/MM3 CBC Comment AUTO DIFF Differential Total Cells Counted 100 Neutrophils % (Manual) 88 % Lymphocytes % 7 % Monocytes % 4 % Neutrophils # (Manual) 10.4 TH/MM3 Myelocytes 1 % Differential Comment FINAL DIFF MANUAL Platelet Estimate NORMAL Platelet Morphology Comment NORMAL Red Cell Morphology Comment NORMAL Blood Urea Nitrogen 19 MG/DL 31 MG/DL 36 MG/DL Creatinine 1.12 MG/DL 1.32 MG/DL 1.45 MG/DL Random Glucose 173 MG/DL 157 MG/DL 145 MG/DL Calcium Level 9.2 MG/DL 8.7 MG/DL 8.7 MG/DL Sodium Level 132 MEQ/L 130 MEQ/L 130 MEQ/L Potassium Level 4.2 MEQ/L 4.1 MEQ/L 3.9 MEQ/L Chloride Level 95 MEQ/L 94 MEQ/L 94 MEQ/L Carbon Dioxide Level 29.6 MEQ/L 28.2 MEQ/L 29.6 MEQ/L Anion Gap 7 MEQ/L 8 MEQ/L 6 MEQ/L Estimat Glomerular Filtration Rate 62 ML/MIN 52 ML/MIN 46 ML/MIN Imaging Last Impressions Chest X-Ray 05/06/17 1039 Signed Impressions: Service Date/Time: , May 06, 2017 10:47 - CONCLUSION: 1. Left lower lobe airspace consolidation and likely trace pleural effusion. Findings are concerning for left lower lobe pneumonia. 2. Cardiomegaly with minimal positive fluid balance. Jeremy Rolon MD Objective Remarks GENERAL: This is a well-nourished, well-developed patient, in no acute distress CARDIOVASCULAR: Regular rate and rhythm RESPIRATORY: LLL coarse crackles present. poor air movement through out with scattered rhonchi GASTROINTESTINAL: Abdomen soft, non-tender, nondistended. No guarding. MUSCULOSKELETAL: Bilateral lower extremity 1 + pitting edema L > R NEUROLOGICAL: Awake and alert. No focal deficits noted. Motor and sensory grossly within normal limits. 4-5 out of 5 muscle strength in all muscle groups. Procedures none A/P Problem List: (1) Pneumonia ICD Codes: J18.9 - Pneumonia, unspecified organism Status: Acute Plan: This is an 87-year-old male patient with past medical history which includes arthritis, BPH, stage II colon cancer resected 5 2010, chronic obstructive pulmonary disease, GERD, hyperlipidemia, memory loss, neuralgia foot , osteoarthritis and osteoporosis. Patient reports he's had worsening shortness of breath and cough productive of yellow phlegm for the past 5 days and subjective fevers. - CXR reviewed and reveals: Left lower lobe airspace consolidation and likely trace effusion. Findings are concerning for left lower lobe pna. Cardiomegaly with minimal positive fluid balance - Duonebs Q4h while awake and as needed - patient started on Rocephin and azithromycin in ER, will start Zosyn - repeat CXR PA and LAT (05/07) Small left pleural effusion with adjacent atelectasis. There is likely atelectasis at the right lung base as well. Airspace consolidation in one of the lower lobes likely left lower lobe. This could represent an infectious process. Clinical history - Sputum culture pending - urine for legionella antigen presumptive negative and pneumococcal presumptive negative - titrate oxygen to maintain saturation > or equal to 92%, patient now (05/09) down to 3L - case discussed with patient and nurse as bedside as well as patient's daughter over the phone(05/08) - patient had coughing spell through the night, does not feel that Robitussin with codeine is helping will change to Hycodan DVT prophylaxis with Lovenox (2) Hypoxia ICD Codes: R09.02 - Hypoxemia Status: Acute Plan: see above (3) COPD (chronic obstructive pulmonary disease) ICD Codes: J44.9 - Chronic obstructive pulmonary disease, unspecified Status: Acute Plan: Continue patient's home Spiriva duonebs scheduled and as needed patient with significant bilateral wheezing and decreased air entry, will add solumedrol 125 mg now solumedrol 60 mg Q6H -> (05/09) decrease to 60 mg Q12H (4) BPH (benign prostatic hyperplasia) ICD Codes: N40.0 - Benign prostatic hyperplasia without lower urinary tract symptoms Status: Chronic Plan: Continue patient's home Terazosin (5) Edema ICD Codes: R60.9 - Edema, unspecified Status: Chronic Plan: Patient with right sided Pleural effusion and BLE pitting edema Lasix 20 mg IV daily- DC'd 05/08 recheck BMP worsening renal function and hyponatremia- Lasix 20mg IV x 1 today will reevaluate need for further lasix tomorrow patient takes Lasix 20mg PO every other day at home recheck BMP in AM Assessment and Plan Patient examined. Assessment and plan formulated with Rebecca Andrew PA-C. I agree with the above. Rebecca Andrew May 09, 2017 14:44 Gray Fajardo DO May 14, 2017 11:42
[2017-05-09] MEDS ORDERED: SODIUM CHLOR 0.9% 1000 ML INJ 1,000 ML IV SCH (14:45)
[2017-05-09] MEDS ORDERED: FUROSEMIDE 20 MG/2 ML VIAL IV PUSH ONE (15:15)
[2017-05-09] MEDS: ENOXAPARIN SODIUM 40 MG/0.4 ML SYRINGE SQ SCH (18:32)
[2017-05-09] MEDS: HYDROcodone 5 MG/HOMATROPINE 1.5 MG SYRUP 5 ML CUP PO PRN (18:33)
[2017-05-09] MEDS: TERAZOSIN HCL 1 MG CAP PO SCH (21:02)
[2017-05-10] VITALS (11 sets, daily range): BP systolic 125–166; BP diastolic 59–92; PULSE 54–90; RESP 18–20; TEMP 97.7–98.4; O2SAT 91–95
[2017-05-10] MEDS: PIPERACIL-TAZO 3.375 GM PREMIX 50 ML IV SCH (02:40)
[2017-05-10] MEDS: HYDROcodone 5 MG/HOMATROPINE 1.5 MG SYRUP 5 ML CUP PO PRN ×3 (02:48→23:06)
[2017-05-10] MEDS: SODIUM CHLORIDE 0.9% FLUSH 10 ML FLUSH IV FLUSH SCH ×2 (09:00→22:52)
[2017-05-10] MEDS: [UNRECOGNIZED DRUG - OTHER] INH SCH (09:00)
[2017-05-10] MEDS: SPIRIVA RESPIMAT INH SCH (09:00)
[2017-05-10] MEDS: RESP: ALBUTEROL 2.5 MG/IPRATROPIUM 0.5 MG NEB (SCH) NEB ×3 (09:12→19:32)
[2017-05-10 09:36] LABS: BICARBONATE 32.5 MEQ/L (21.0-32.0); POTASSIUM 3.9 MEQ/L (3.5-5.1)
[2017-05-10] MEDS: PANTOPRAZOLE SOD 40 MG DELAYED RELEASE TAB PO SCH (09:43)
[2017-05-10] MEDS: GABAPENTIN 300 MG CAP PO SCH ×3 (09:44→17:37)
[2017-05-10] MEDS: methylPREDNISolone SOD SUCC 125 MG/2 ML VIAL IV PUSH SCH ×2 (09:44→22:52)
--- NOTE | 2017-05-10 09:47 | HHI.PR ---
Subjective Remarks still coughing. ambulates in room. Objective Vitals heart reg lung sheryl wheeze/rhonci abd s/nt ext no edema Vital Signs Date Time Temp Pulse Resp B/P (MAP) Pulse Ox O2 Delivery O2 Flow Rate FiO2 05/10/17 09:12 94 Nasal Cannula 3.00 05/10/17 07:54 75 05/10/17 07:54 Nasal Cannula 3.00 Humidified 05/10/17 04:00 98.4 65 20 133/63 (86) 92 05/10/17 04:00 54 05/10/17 00:00 97.8 70 20 134/92 (106) 91 05/10/17 00:00 55 05/09/17 20:00 97.9 97 20 132/63 (86) 91 05/09/17 20:00 Nasal Cannula 3.00 Humidified 05/09/17 20:00 63 05/09/17 19:24 91 Nasal Cannula 5.00 05/09/17 16:00 97.5 65 20 133/63 (86) 90 05/09/17 16:00 77 05/09/17 13:45 3.00 05/09/17 12:00 97.5 80 20 146/67 (93) 91 05/09/17 10:30 73 05/09/17 10:30 Nasal Cannula 3.00 Result Diagram: 05/07/17 0705 05/10/17 0730 Imaging Last Impressions Chest X-Ray 05/06/17 1039 Signed Impressions: Service Date/Time: April 10:47 - CONCLUSION: 1. Left lower lobe airspace consolidation and likely trace pleural effusion. Findings are concerning for left lower lobe pneumonia. 2. Cardiomegaly with minimal positive fluid balance. Jeremy Rolon MD Procedures none A/P Problem List: (1) Pneumonia ICD Codes: J18.9 - Pneumonia, unspecified organism Status: Acute Plan: This is an 87-year-old male patient with past medical history which includes arthritis, BPH, stage II colon cancer resected 5 2010, chronic obstructive pulmonary disease, GERD, hyperlipidemia, memory loss, neuralgia foot , osteoarthritis and osteoporosis. Patient reports he's had worsening shortness of breath and cough productive of yellow phlegm for the past 5 days and subjective fevers. - CXR reviewed and reveals: Left lower lobe airspace consolidation and likely trace effusion. Findings are concerning for left lower lobe pna. Cardiomegaly with minimal positive fluid balance - So he is admitted with severe copd exacerbation and pna - cont duonebs and his solumedrol was lowered in frequency. - add budesonide nebs. - convert abx to get atypical coverage -DVT prophylaxis with Lovenox -PT and oob daily. -He is contemplating snf...daughter will come from out of state when released from [place] (2) Hypoxia ICD Codes: R09.02 - Hypoxemia Status: Acute Plan: see above (3) COPD (chronic obstructive pulmonary disease) ICD Codes: J44.9 - Chronic obstructive pulmonary disease, unspecified Status: Acute Plan: above (4) BPH (benign prostatic hyperplasia) ICD Codes: N40.0 - Benign prostatic hyperplasia without lower urinary tract symptoms Status: Chronic Plan: Continue patient's home Terazosin (5) Edema ICD Codes: R60.9 - Edema, unspecified Status: Chronic Santino Rice MD May 10, 2017 09:47
[2017-05-10] MEDS: LEVOFLOXACIN 500 MG PREMIX INJ 100 ML IV SCH (11:05)
[2017-05-10] MEDS: ENOXAPARIN SODIUM 40 MG/0.4 ML SYRINGE SQ SCH (17:37)
[2017-05-10] MEDS: RESP: BUDESONIDE 0.5 MG/2 ML NEB NEB SCH (19:32)
[2017-05-10] MEDS: TERAZOSIN HCL 1 MG CAP PO SCH (22:51)
[2017-05-11] VITALS (11 sets, daily range): BP systolic 134–153; BP diastolic 63–90; PULSE 57–77; RESP 16–20; TEMP 97.3–97.6; O2SAT 91–94
[2017-05-11] MEDS: HYDROcodone 5 MG/HOMATROPINE 1.5 MG SYRUP 5 ML CUP PO PRN ×2 (07:00→22:37)
--- NOTE | 2017-05-11 08:54 | HHI.PR ---
Subjective Remarks ambulating in room says he will go home with family when they arrive not interested in snf. breathing improved Objective Vitals heart reg lung improved air entry. less wheeze and rhonci. ext no edema Vital Signs Date Time Temp Pulse Resp B/P (MAP) Pulse Ox O2 Delivery O2 Flow Rate FiO2 05/11/17 04:00 73 05/11/17 04:00 97.5 61 16 134/64 (87) 93 05/11/17 00:10 61 05/11/17 00:00 97.6 73 16 137/65 (89) 92 05/10/17 20:12 90 05/10/17 20:00 Nasal Cannula 3.00 Humidified 05/10/17 20:00 98.3 80 18 134/62 (86) 92 05/10/17 19:34 95 Nasal Cannula 3.00 05/10/17 16:28 05/10/17 16:00 98.2 60 20 150/65 (93) 94 05/10/17 15:18 83 05/10/17 14:12 05/10/17 12:00 98.0 79 20 125/59 (81) 93 05/10/17 11:38 05/10/17 09:12 94 Nasal Cannula 3.00 Result Diagram: 05/07/17 0705 05/10/17 0730 Imaging Last Impressions Chest X-Ray 05/06/17 1039 Signed Impressions: Service Date/Time: April 10:47 - CONCLUSION: 1. Left lower lobe airspace consolidation and likely trace pleural effusion. Findings are concerning for left lower lobe pneumonia. 2. Cardiomegaly with minimal positive fluid balance. Jeremy Rolon MD Procedures none A/P Problem List: (1) Pneumonia ICD Codes: J18.9 - Pneumonia, unspecified organism Status: Acute Plan: This is an 87-year-old male patient with past medical history which includes arthritis, BPH, stage II colon cancer resected 5 2010, chronic obstructive pulmonary disease, GERD, hyperlipidemia, memory loss, neuralgia foot , osteoarthritis and osteoporosis. Patient reports he's had worsening shortness of breath and cough productive of yellow phlegm for the past 5 days and subjective fevers. - CXR reviewed and reveals: Left lower lobe airspace consolidation and likely trace effusion. Findings are concerning for left lower lobe pna. Cardiomegaly with minimal positive fluid balance - So he is admitted with severe copd exacerbation and pna - cont duonebs and his solumedrol was lowered in frequency. - added budesonide nebs. - convered abx to get atypical coverage -DVT prophylaxis with Lovenox -PT and oob daily. -overall improved. he is staying active and oob. not interested now in snf and will go with hhc/pt when daughter arrives ..probably . (2) Hypoxia ICD Codes: R09.02 - Hypoxemia Status: Acute Plan: see above (3) COPD (chronic obstructive pulmonary disease) ICD Codes: J44.9 - Chronic obstructive pulmonary disease, unspecified Status: Acute Plan: above (4) BPH (benign prostatic hyperplasia) ICD Codes: N40.0 - Benign prostatic hyperplasia without lower urinary tract symptoms Status: Chronic Plan: Continue patient's home Terazosin (5) Edema ICD Codes: R60.9 - Edema, unspecified Status: Chronic Santino Rice MD May 11, 2017 08:54
[2017-05-11] MEDS: SODIUM CHLORIDE 0.9% FLUSH 10 ML FLUSH IV FLUSH SCH ×2 (09:07→22:32)
[2017-05-11] MEDS: [UNRECOGNIZED DRUG - OTHER] INH SCH (09:07)
[2017-05-11] MEDS: PANTOPRAZOLE SOD 40 MG DELAYED RELEASE TAB PO SCH (09:07)
[2017-05-11] MEDS: methylPREDNISolone SOD SUCC 125 MG/2 ML VIAL IV PUSH SCH ×2 (09:07→22:31)
[2017-05-11] MEDS: GABAPENTIN 300 MG CAP PO SCH ×3 (09:07→17:50)
[2017-05-11] MEDS: SPIRIVA RESPIMAT INH SCH (09:07)
[2017-05-11] MEDS: RESP: BUDESONIDE 0.5 MG/2 ML NEB NEB SCH ×2 (09:23→19:44)
[2017-05-11] MEDS: RESP: ALBUTEROL 2.5 MG/IPRATROPIUM 0.5 MG NEB (SCH) NEB ×3 (09:23→19:44)
[2017-05-11] MEDS: LEVOFLOXACIN 500 MG PREMIX INJ 100 ML IV SCH (11:52)
[2017-05-11] MEDS: ENOXAPARIN SODIUM 40 MG/0.4 ML SYRINGE SQ SCH (17:50)
[2017-05-11] MEDS: TERAZOSIN HCL 1 MG CAP PO SCH (22:31)
[2017-05-12] VITALS (10 sets, daily range): BP systolic 124–161; BP diastolic 57–73; PULSE 55–75; RESP 18–19; TEMP 97.5–98; O2SAT 88–95
[2017-05-12] MEDS: GABAPENTIN 300 MG CAP PO SCH ×3 (08:35→18:05)
[2017-05-12] MEDS: PANTOPRAZOLE SOD 40 MG DELAYED RELEASE TAB PO SCH (08:35)
[2017-05-12] MEDS: methylPREDNISolone SOD SUCC 125 MG/2 ML VIAL IV PUSH SCH ×2 (08:35→21:20)
[2017-05-12] MEDS: SPIRIVA RESPIMAT INH SCH (09:00)
[2017-05-12] MEDS: [UNRECOGNIZED DRUG - OTHER] INH SCH (09:00)
[2017-05-12] MEDS: RESP: ALBUTEROL 2.5 MG/IPRATROPIUM 0.5 MG NEB (SCH) NEB ×3 (09:20→21:18)
[2017-05-12] MEDS: RESP: BUDESONIDE 0.5 MG/2 ML NEB NEB SCH ×2 (09:20→21:18)
[2017-05-12] MEDS ORDERED: OXYGENTANK NAS.CANULA (10:59)
--- NOTE | 2017-05-12 11:01 | HHI.PR ---
Subjective Remarks doing well. eager for d/c tomorrow. Objective Vitals heart reg lung crackles left base rhonce and wheezing better ext no edema Vital Signs Date Time Temp Pulse Resp B/P (MAP) Pulse Ox O2 Delivery O2 Flow Rate FiO2 05/12/17 09:23 3.00 05/12/17 08:05 98.0 75 19 161/73 (102) 88 05/12/17 04:52 97.5 55 18 137/70 (92) 92 05/12/17 03:58 62 05/12/17 00:49 68 05/11/17 23:53 97.4 69 18 139/63 (88) 91 05/11/17 20:02 63 05/11/17 20:00 Nasal Cannula 3.00 05/11/17 19:52 97.3 73 18 137/65 (89) 92 05/11/17 19:46 94 Nasal Cannula 3.00 05/11/17 16:04 Nasal Cannula 3.00 05/11/17 16:00 97.5 77 20 152/63 (92) 93 05/11/17 12:00 97.6 58 20 142/90 (107) 92 Result Diagram: 05/10/17 0730 Imaging Last Impressions Chest X-Ray 05/06/17 1039 Signed Impressions: Service Date/Time: April 10:47 - CONCLUSION: 1. Left lower lobe airspace consolidation and likely trace pleural effusion. Findings are concerning for left lower lobe pneumonia. 2. Cardiomegaly with minimal positive fluid balance. Jeremy Rolon MD Procedures none A/P Problem List: (1) Pneumonia ICD Codes: J18.9 - Pneumonia, unspecified organism Status: Acute Plan: This is an 87-year-old male patient with past medical history which includes arthritis, BPH, stage II colon cancer resected 5 2010, chronic obstructive pulmonary disease, GERD, hyperlipidemia, memory loss, neuralgia foot , osteoarthritis and osteoporosis. Patient reports he's had worsening shortness of breath and cough productive of yellow phlegm for the past 5 days and subjective fevers. - CXR reviewed and reveals: Left lower lobe airspace consolidation and likely trace effusion. Findings are concerning for left lower lobe pna. Cardiomegaly with minimal positive fluid balance - So he is admitted with severe copd exacerbation and pna - cont duonebs and his solumedrol was lowered in frequency. - added budesonide nebs. - convered abx to get atypical coverage -DVT prophylaxis with Lovenox -PT and oob daily. -overall improved. he is staying active and oob. not interested now in snf and will go with hhc/pt when daughter arrives ..probably . arrange home oxygen and recheck in office. failed walk test. (2) Hypoxia ICD Codes: R09.02 - Hypoxemia Status: Acute Plan: see above (3) COPD (chronic obstructive pulmonary disease) ICD Codes: J44.9 - Chronic obstructive pulmonary disease, unspecified Status: Acute Plan: above (4) BPH (benign prostatic hyperplasia) ICD Codes: N40.0 - Benign prostatic hyperplasia without lower urinary tract symptoms Status: Chronic Plan: Continue patient's home Terazosin (5) Edema ICD Codes: R60.9 - Edema, unspecified Status: Chronic Santino Rice MD May 12, 2017 11:01
[2017-05-12] MEDS: LEVOFLOXACIN 500 MG PREMIX INJ 100 ML IV SCH (12:00)
[2017-05-12] MEDS: SODIUM CHLORIDE 0.9% FLUSH 10 ML FLUSH IV FLUSH SCH ×2 (12:05→21:21)
[2017-05-12 12:23] LABS: BICARBONATE 33.9 MEQ/L (21.0-32.0); POTASSIUM 3.9 MEQ/L (3.5-5.1)
[2017-05-12] MEDS: ENOXAPARIN SODIUM 40 MG/0.4 ML SYRINGE SQ SCH (18:05)
[2017-05-12] MEDS: TERAZOSIN HCL 1 MG CAP PO SCH (21:21)
[2017-05-12] MEDS: HYDROcodone 5 MG/HOMATROPINE 1.5 MG SYRUP 5 ML CUP PO PRN (21:24)
[2017-05-13 00:03] VITALS: PULSE 80
[2017-05-13 00:12] VITALS: BP 145/65; PULSE 70; RESP 18; TEMP 97.2; O2SAT 91
[2017-05-13 00:15] VITALS: PULSE 59
[2017-05-13 04:02] VITALS: BP 143/67; PULSE 61; RESP 18; TEMP 97.2; O2SAT 92
[2017-05-13 05:19] VITALS: PULSE 61
[2017-05-13 08:00] VITALS: BP 146/68; PULSE 54; PULSE 56; RESP 18; TEMP 97.5; O2SAT 94
[2017-05-13] MEDS: RESP: BUDESONIDE 0.5 MG/2 ML NEB NEB SCH ×2 (08:00→09:28)
[2017-05-13] MEDS: methylPREDNISolone SOD SUCC 125 MG/2 ML VIAL IV PUSH SCH (08:39)
[2017-05-13] MEDS: PANTOPRAZOLE SOD 40 MG DELAYED RELEASE TAB PO SCH (08:39)
[2017-05-13] MEDS: GABAPENTIN 300 MG CAP PO SCH (08:39)
[2017-05-13] MEDS: SODIUM CHLORIDE 0.9% FLUSH 10 ML FLUSH IV FLUSH SCH (08:41)
[2017-05-13] MEDS: SPIRIVA RESPIMAT INH SCH (08:42)
[2017-05-13] MEDS: [UNRECOGNIZED DRUG - OTHER] INH SCH (08:42)
[2017-05-13] MEDS: RESP: ALBUTEROL 2.5 MG/IPRATROPIUM 0.5 MG NEB (SCH) NEB (09:28)
[2017-05-13] MEDS ORDERED: LEVA500T33 PO (10:34)
[2017-05-13] MEDS ORDERED: ALBU.5I NEB (10:34)
[2017-05-13] MEDS ORDERED: PRED10 PO (10:34)
[2017-05-13] MEDS ORDERED: IPRA0.02 NEB (10:34)
--- NOTE | 2017-05-13 10:35 | HHI.DCPOC ---
Discharge Care Plan Diagnosis: (1) COPD (chronic obstructive pulmonary disease) (2) Pneumonia (3) Hypoxia (4) BPH (benign prostatic hyperplasia) Goals to Promote Your Health * To prevent worsening of your condition and complications * To maintain your health at the optimal level Directions to Meet Your Goals Take your medications as prescribed Follow your dietary instruction Follow activity as directed Keep your appointments as scheduled Take your immunizations and boosters as scheduled If your symptoms worsen call your PCP, if no PCP go to Urgent Care Center or Emergency Room Smoking is Dangerous to Your Health. Avoid second hand smoke Call the 24-hour hour crisis hotline for domestic abuse at Santino Rice MD May 13, 2017 10:35
--- NOTE | 2017-05-13 10:37 | HHI.FF ---
Face to Face Verification Diagnosis: (1) COPD (chronic obstructive pulmonary disease) (2) Pneumonia (3) Hypoxia Physical Therapy Order: Evaluate and Treat, Improve ambulation Home Health Nursing Order: Medical education Signs/symptoms of disease process Oxygen administration education Medication education-adverse effect Nursing assessment with vital signs I have seen patient Armando Vergara on 05/13/17. My clinical findings support the need for the requested home health care services because: Patient has SOB I certify that my clinical findings support that this patient is homebound because: Hx COPD- exertion dyspnea/weakness Santino Rice MD May 13, 2017 10:37
--- NOTE | 2017-05-13 10:40 | HHI.DS ---
Discharge Summary Admission Date May 06, 2017 at 12:22 Discharge Date: May 13, 2017 Admitting Diagnosis pneumonia/respiratory distress/hypoxia (1) Pneumonia Diagnosis: Principal ICD Codes: J18.9 - Pneumonia, unspecified organism Status: Acute (2) Hypoxia Diagnosis: Principal ICD Codes: R09.02 - Hypoxemia Status: Acute (3) COPD (chronic obstructive pulmonary disease) Diagnosis: Principal ICD Codes: J44.9 - Chronic obstructive pulmonary disease, unspecified Status: Acute (4) BPH (benign prostatic hyperplasia) ICD Codes: N40.0 - Benign prostatic hyperplasia without lower urinary tract symptoms Status: Chronic (5) Edema Diagnosis: Secondary ICD Codes: R60.9 - Edema, unspecified Status: Chronic Procedures none Brief History This is an 87-year-old male patient with past medical history which includes arthritis, BPH, stage II colon cancer resected 2010, chronic obstructive pulmonary disease, GERD, hyperlipidemia, memory loss, neuralgia foot, osteoarthritis and osteoporosis. Patient reports he's had worsening shortness of breath and cough productive of yellow phlegm for the past 5 days. Patient also endorses subjective fevers although he has not taken his temperature. Patient denies chills, chest pains nausea vomiting diarrhea constipation. CBC/BMP: 05/12/17 1045 Significant Findings Laboratory Tests Test 05/12/17 10:45 Blood Urea Nitrogen 31 MG/DL (7-18) Random Glucose 112 MG/DL (74-106) Chloride Level 97 MEQ/L (98-107) Carbon Dioxide Level 33.9 MEQ/L (21.0-32.0) Estimat Glomerular Filtration Rate 58 ML/MIN (>89) Hospital Course (1) Pneumonia This is an 87-year-old male patient with past medical history which includes arthritis, BPH, stage II colon cancer resected 2010, chronic obstructive pulmonary disease, GERD, hyperlipidemia, memory loss, neuralgia foot, osteoarthritis and osteoporosis. Patient reports he's had worsening shortness of breath and cough productive of yellow phlegm for the past 5 days and subjective fevers. - CXR reviewed and reveals: Left lower lobe airspace consolidation and likely trace effusion. Findings are concerning for left lower lobe pna. Cardiomegaly with minimal positive fluid balance - So he is admitted with severe copd exacerbation and pna - Pt improved daily and is ambulating w/out difficulty. his lung exam improved dialy. He is still requiring oxygen at time of d/c and this can be rechecked in pcp office next week. -He was on levaquin in hospital and 1 week script given for d/c. IV solumedrol is converted to prednisone taper at d/c - Pt refused snf and his daughter will arrive from out of town today and take him home ..HHC/PT ordered. (2) Hypoxia ICD Codes: R09.02 - Hypoxemia Status: Acute Plan: see above (3) COPD (chronic obstructive pulmonary disease) ICD Codes: J44.9 - Chronic obstructive pulmonary disease, unspecified Status: Acute Plan: above (4) BPH (benign prostatic hyperplasia) ICD Codes: N40.0 - Benign prostatic hyperplasia without lower urinary tract symptoms Status: Chronic Plan: Continue patient's home Terazosin (5) Edema ICD Codes: R60.9 - Edema, unspecified Status: Chronic Pt Condition on Discharge: Stable Discharge Disposition: Disch w/ Home Health Serv Discharge Instructions DIET: Follow Instructions for: As Tolerated, No Restrictions Activities you can perform: Regular-No Restrictions Follow up Referrals: PCP Follow-up - [address] gregory New Medications: Albuterol Neb (Albuterol Neb) 2.5 Mg/0.5 Ml Neb 2.5 MG NEB Q6HR NEB for copd for 30 Days, BOX Note: The Albuterol Sulfate Inhalation Solution is concentrated and must be diluted. Read complete instructions carefully before using. Ipratropium Neb (Ipratropium Neb) 0.5 Mg/2.5 Ml Amp 0.5 MG NEB Q6HR NEB for Breathing Treatment for 30 Days, NEBULE 0 Refills Levofloxacin (Levaquin) 500 Mg Tablet 500 MG PO DAILY for Infection for 7 Days, #7 TAB 0 Refills Oxygen tank (Oxygen tank) 1 Ea Tank LITER ARMIDA.CANULA CONTINUOUS for HYPOXEMIA PREVENTION, #2 Oxygen Concentrator Portable Gaseous 2 L/min via Nasal Cannula Continuous For 99 months Prednisone (Prednisone) 10 Mg Tab 10 MG PO DIRECTED for copd for 10 Days, TAB 0 Refills 20mg po bid x 3 days, 10mg po bid x 3 days, 10mg po daily x 4 days Continued Medications: Aspirin (Aspir-81) 81 Mg Tabdr Calcium Carbonate-Vitamin D (Calcium 600+D 200) 600-200 Mg-Unit Tab 1 TAB PO BID for Nutritional Supplement, TAB 0 Refills Furosemide (Lasix) 40 Mg Tab 40 MG PO DAILY, #30 TAB 0 Refills Gabapentin (Gabapentin) 300 Mg Cap 300 MG PO TID, #90 CAP 0 Refills Glucosamine-Chondroitin (Glucosamine-Chondroitin) 500-400 Mg Tab 1 TAB PO BID for Herbal Supplements, TAB 0 Refills Terazosin (Terazosin) 2 Mg Cap 2 MG PO HS, #30 CAP 0 Refills Tiotropium Inh (Spiriva Handihaler) 18 Mcg Cap 18 MCG INH DAILY for COPD, #30 CAP 0 Refills 1 capsule = 18 mcg Santino Rice MD May 13, 2017 10:40
== END 2017-05-13 13:07 | disposition home health service (06) | DRG 190 ==
LOC: NEPC 10:17 → NEDA 12:22 → N04B 13:58
PROVIDERS: ADMIT Hospitalist; ATTEND Hospitalist
DX: J44.0 Chronic obstructive pulmonary disease with (acute) lower respiratory infection (principal); J18.9 Pneumonia, unspecified organism; I11.0 Hypertensive heart disease with heart failure; R06.03 Acute respiratory distress; I50.9 Heart failure, unspecified; E87.1 Hypo-osmolality and hyponatremia; J98.11 Atelectasis; J44.1 Chronic obstructive pulmonary disease with (acute) exacerbation; E78.5 Hyperlipidemia, unspecified; R09.02 Hypoxemia; R60.9 Edema, unspecified; N40.0 Benign prostatic hyperplasia without lower urinary tract symptoms; K21.9 Gastro-esophageal reflux disease without esophagitis; M19.90 Unspecified osteoarthritis, unspecified site; M81.0 Age-related osteoporosis without current pathological fracture; Z79.82 Long term (current) use of aspirin; Z85.038 Personal history of other malignant neoplasm of large intestine; Z86.73 Personal history of transient ischemic attack (TIA), and cerebral infarction without residual deficits; Z87.891 Personal history of nicotine dependence
CPT/HCPCS: 36415; 71010; 71020; 80048; 80053; 82378; 82550; 82552; 83735; 83880; 84484; 85007; 85025; 85027; 85610; 85730; 87040; 87070; 87205; 87449; 87804; 93005; 94620; 94640; 94664; 96374; J0456; J0696; J1650; J1940; J1956; J2543; J2930; J7050; J7626